=== PATIENT | female | born 1985 | race Caucasian/White ===

== ENCOUNTER 2021-09-18 07:50 | Outpatient (CLI) | payer OTHER, SELFPAY ==
[2021-09-19 21:11] LABS: Rapid Plasma Reagin (RPR) Non Reactive (Non Reactive)
== END 2021-09-18 07:51 | disposition home or self-care (01) ==
PROVIDERS: Physician Assistant; Visit Provider Registered Nurse
DX: Z34.93 Encounter for supervision of normal pregnancy, unspecified, third trimester (principal); Z3A.28 28 weeks gestation of pregnancy
CPT/HCPCS: 86592

== ENCOUNTER 2021-09-18 11:55 | Outpatient (CLI) | payer OTHER, SELFPAY ==
--- NOTE | 2021-09-18 12:15 | CRLHL7_ITS ---
For Patients: As a result of the Century Cures Act, medical imaging exams and procedure reports are released immediately into your electronic medical record. You may view this report before your referring provider. If you have questions, please contact your health care provider. INDICATION: Third trimester scan, evaluate growth. Small for dates. COMPARISON: 07/23/2021 TECHNIQUE: Real time mcgowan scale imaging of the fetus was performed. FINDINGS: Sonographic imaging demonstrates a single living intrauterine gestation. Fetus demonstrates a regular cardiac rate of 161 beats per minute. Fetus has a judy breech position. The placenta lies posterior. Amniotic fluid volume appears normal and there is a single deepest vertical pocket: 4.4 cm. The estimated weight is 1184gm which lies at the 38th %. On the prior OB ultrasound exam dated 07/23/2021 the estimated weight was at the 63rd%. BPD 10th percentile. HC 27th percentile. AC 40th percentile. FL 44th percentile. The HC/AC ratio measures 1.10 range (1.02-1.21). IMPRESSION: Sonographic gestational age 28 weeks 0 days and sonographic due date 12/11/2021. Good correlation with dates. Normal interval growth. Estimated weight 38th percentile. Abdominal circumference 40th percentile. Dictated by Dejon Robles MD @ 09/19/2021 10:52:08 AM (Electronically Signed)
--- OUTSIDE RECORDS SUMMARY | 2021-10-14 12:24 | XMS_ITS | Continuity of Care Document ---
:1985 Author Organization [facility] Address [address] [address] [place] [address] Phone Care Team Providers Name Role Phone Unavailable Unavailable Unavailable Allergies, Adverse Reactions, Alerts Substance Reaction Status Criticality No Known Allergies Active No Informatio n Medications Medication Instructions Dosage Effective Dates Status Comment s (start - stop) Wellbutrin XL 150 take 1 tablet by 150 MG - Active mg 24 hr tablet, oral route every day extended release Herbal - Active norplant bi rth Medications/Supple contro l in the ments unknown arm for 3 y ears Procedures Procedure Date Offic/outpt E&m New Mod Ramon Advance Directives Directive Yes / No Effective Date File Name No Information Encounters Encounter Practice Location Reason(s) Diagnoses Date Provider Provide rs Description For Visit Copied on Encounter Offic/outpt [facility] Symptoms Appendicitis No Ref erring E&m New [facility] Clinic or Concerns with abscess Informati on Provider: Ramon DOYLE, (chief [address]) Self. [address], [place], [place], [id number], [place] tel:[phone] Family History Family Member Type Diagnosis Age At Onset Mother Problem (finding) Alive and well Brother Problem (finding) Alive and well Father Problem (finding) hypertension Payers Payer name Insurance type Covered democrat ID Authorization(s ) [facility] [id number] Social History Type Description Quantity Date Captured Comments Alcohol Use Details Caffeine Use Details Unknown Tobacco Use Status Never smoked tobacco Smoking Status Never smoker Non-Smoking Tobacco : No Details Available : No Details Available J Use Details Sex Female Vital Signs Date / Height Weight BMI Pulse Blood Temperature Respiratory Body Head Head Circ. Wt./German. BMI Pulse Inhaled Time: Rate Pressure Rate Surface Circumference Percenti le Percentile percentile Ox Ox Area 61.00 51.710 21.5 67 118/76 -2018 in kg 4 /min mm[Hg] 10:54 (114.00 kg/m AM lbs) aishwarya (2) Chief Complaint And Reason For Visit From encounter dated 09/20/2017 11:00'. GI Symptoms or Concerns (chief complaint). Description: This patient is a 31-year-old female from [place], [place], who is seen today for further opinion regarding recent illness, which began on oraround September 05, 2017, with acute onset of severe right lower quadrant abdominal pain. The patient wasaccompanied today by her father who provided some of the history, also. Additional information was obtained from review of outside records, which had been previously procured. 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 She has performed her services wor wide for the last 2 years. The patient was awakened from a sound sleep on September 05, 2017, with severe right lower quadrant abdominal pain. The patient was seen on that date at a [facility] [place]. I understand that laboratory testing showed a white blood count of approximately 13,000 and had subsequently an elevation of the C-reactive protein was noted. According to the patient, she was told on that date that, if desired, she could go to the emergency room for further evaluation or she could observe her symptoms carefully and seek further investigation if they persisted. The patient was seen by her primary care provider on September 10, 2017. A CT scan of the abdomen/pelvis on that date showed wall thickening of the terminal ileum. There is a markedly distended appendix measuring up to 18 mm in diameter with a thick enhancing wall. There is surrounding inflammatorychange. There is focal enlargement or fluid collection within the distal appendix measuring 2.6 x 1.7 cm suspicious for abscess. There is wall thickening of the distal cecum. A small amount of free fluid was noted in the pelvis, but there was no evidence of any free air. According to the report, the radiologist felt the changes were consistent with acute appendicitis and were "suspicious for abscess. The patient was started on antibiotic therapy and she told me today that she has just finished the course of antibiotics. She was seen by the surgical lead in [place] on September 14, 2017, and was advised to continue antibiotic therapy. Longer term plans were to repeat the CT scan in 4 to 6 weeks and to go ahead with appendectomy, if inflammatory changes have resolved. 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 Instead my associate Dr. Ford was contacted a few days ago by telephone and he was then arranged for the patient to be seen in our clinic today.The patient told me that initially her abdominal pain seemed to subside greatly after the first couple of days, but then it again became more severe. As she finishes the antibiotics as of today, she continuous to have some relatively mild right lower quadrant discomfort and tenderness. The discomfort is worse, if she walks or lifts something, but it has not awakened her from sleep. The patient had previously been having a low grade fever, but she noted that she has been afebrile for the last 3 days. She has not had any chills. The patient has had no nausea, vomiting, hematemesis, reflux symptoms or dysphagia. Her appetite has been good and she haslost a few pounds in weight.Normally, the patient has 1 formed stool daily. Currently, she is having2 movements per day with the initial stool being somewhat soft and normally formed and in the secondstool somewhat looser in consistency. However, the patient has had no blood in the stool nor any melena. The patient denies any other prior history of gastrointestinal problems. Her family history is said to be negative for colon cancer, inflammatory bowel disease, or any other major gastrointestinal disorders.The patient has otherwise been very healthy. She does have a history of anxiety. She does not smoke or abuse alcohol. There are no known medication allergies. Regular medications include herbal supplement and Wellbutrin. Reason For Referral Reason For Referral No Information Plan Of Treatment Date Type Action Status No Information History Of Present Illness Encounter Date Complaint History Of Present I llness GI Symptoms or Concerns This patient is a 31-year-old female from [place], [place] , who is seen today for further opinion regstacey joaquining recent illness, which began on or ar ound September 05, 2017, with acute onset of sever e right lower quadrant abdominal pain. The patient was accompanied today by her father who provided some of the history, also. Addit ional information was obtained from review of outside records, which had been previously procured. 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 The patient was awakened from a sound sleep on September 05 8, with severe right lower quadrant abdominal p ain. The patient was seen on Functional Status Date Functional Assessment No Information Instructions Date Instruction Additional Informati on I did discuss options available with Rel ated to Appendicitis with abscess the patient and her father. These, however, all involve a surgical followup. First, I did tell the patient I would be happy to arrange referral to a surgeon in this area for second opinion. However, it would be somewhat uncertain as to how soon that appointment could be arranged. The issue of the patient going to a local emergency room for evaluation of ongoing symptoms was also discussed. In that situation, I advised the patient and her father that surgical opinion could be requested. The final option and the one which the patient elected was to return to [place] and follow up with her surgeon, Dr. Stark. She indicated that she was most comfortable with this approach. The patient was advised that if she has any further questions or concerns or if we can be of additional assistance, she should not hesitate to contact us. The patient and her father thanked me for the detailed discussion today and indicated that their questions have been addressed satisfactorily. Assessments Type Assessment Date assessment Appendicitis with abscess impression The patient presents to the clinic today for further opinion regarding an acute illness which began w ith severe acute right lower quadrant pain on September 05, 2017. Mil d leukocytosis was noted. Few days later specifically on 2017, the patient had a CT scan of the abdomen/pel vis, which was interpreted to show changes consistent w ith acute appendicitis and possible/probable appendiceal absces s. The patient has recently finished a course of antibiotic therapy and continues to have some mild right lower quadrant d iscomfort. On exam today, she did have some right lower hanna drant tenderness without any peritoneal findings or palpa ble mass. As discussed with the patient and her father who was present, overall it appears that the patient's symptoms can be explained on the basis of appendicitis and appendiceal ab scess. The inflammatory changes involving the termi nal ileum and a portion of the cecum as described on the CT scan are probably reactive in nature. I am aware that co ncern has been raised that the patient could have inflammatory bowel disease i.e. specifically Crohn's. However, as we dis cussed today, the presentation here is certainly not sugge stive of Crohn's disease. Under the circumstances, we wou ld strongly advise against colonoscopy. I did discuss the s ituation with several of my colleagues and all were in agreeme nt with this assessment. Mental Status Date Cognitive Assessment Orientation - Oriented to ti me, place, person, situation. Patient Care Teams Name Effective Dates (start - stop) Status M embers No Information
== END 2021-09-18 11:56 | disposition home or self-care (01) ==
PROVIDERS: Visit Provider Physician Assistant
DX: O36.5930 Maternal care for other known or suspected poor fetal growth, third trimester, not applicable or unspecified (principal); Z3A.28 28 weeks gestation of pregnancy
CPT/HCPCS: 76816

== ENCOUNTER 2021-11-13 14:43 | Outpatient (CLI) | payer SELFPAY ==
--- OUTSIDE RECORDS SUMMARY | 2021-11-13 14:44 | XMS_ITS | Clinical Summary ---
:1985 Author Organization [facility] [place] [address] Care Team Providers Name Role Phone Clinic, [email or web address] Primary Care Provider [phone] Allergies No known active allergies Medications Medication Sig Dispensed Refills Start Date End Date Status azithromycin Take 500 mg (2 6 Tablet 0 03/10/2021 A ctive (ZITHROMAX) 250 mg tabs) by mouth on tabletIndications: day 1, then 250 Bronchitis mg (1 tab) daily for days 2-5. buPROPion (WELLBUTRIN TAKE ONE TABLET 90 Tablet 0 09/23/2021 Active XL) 150 mg BY MOUTH EVERY Extended-Release DAY tabletIndications: Anxiety Active Problems Problem Noted Date Anxiety 07/11/2020 Sleep disorder 07/11/2020 Acute phlegmonous appendicitis 10/19/2017 Resolved Problems Problem Noted Date Resolved Date Abdominal pain 09/14/2017 03/10/2021 Encounters Date Type Specialty Care Team Description 09/21/2021 Refill Octavio Sherwood MD Refill R equest (Bupropion) from Last 3 Months Immunizations Name Administration Dates Next Due COVID-19 vaccine (FirstString 04/18/2020, 03/28/2020 30mcg/0.3mL) FINESSE SCHNEIDER DT (Age < 7 years) 06/08/1991 DTP 02/19/1988, 04/03/1987, 07/24/1986, 02/14/1986 HIB PRP-D (ProHIBIT) 09/27/1987 Hepatitis B (Peds) 09/23/2004, 10/04/2002, 01/24/2001 Human Papilloma Virus Vaccine 11/12/2009, 08/16/2009, 2009 Influenza, IIV4 03/12/2017 MMR 07/29/1998, 09/27/1987 Meningococcal Vaccine (Menactra) 09/23/2004 Oral Polio Vaccine 06/08/1991, 02/19/1988, 07/24/1986, 02/14/1986 Td (Age >=7 Years) 07/29/1998 Tdap 03/15/2018 Tuberculin (PPD) 03/15/2017 Family History Medical History Relation Name Comments Alcoholism Father Anxiety disorder Mother Depression Mother Relation Name Status Comments Father Alive Mother Alive Social History Tobacco Use Types Packs/Day Years Used Date Never Smoker Smokeless Tobacco: Never Used Tobacco Cessation: Counseling Given: Yes Alcohol Use Standard Drinks/Week Comments Yes 8 (1 standard drink = 0.6 oz pure alcoho l) Alcohol Habits Answer Date Recorded How often do you have a drink containing alcohol? 2-3 times a week 11/21/2018 How many drinks containing alcohol do you have on a 3 or 4 11/21/2018 typical day when you are drinking? How often do you have six or more drinks on one Monthly 11/21/2018 occasion? Comment: Not asked Sex Assigned at Date Recorded Not on file Obstetrics History Para Term AB IAB SAB Ectopic Multiple Living Live Births 0 0 0 0 0 0 0 0 0 0 0 Last Filed Vital Signs Vital Sign Reading Time Taken Comments Blood Pressure 102/70 03/10/2021 9:04 AM SPRING INTERN Pulse 72 03/10/2021 9:04 AM SPRING INTERN Temperature 36.5 ??C (97.7 ??F) 03/10/2021 9:04 AM SPRING INTERN Respiratory Rate 16 08/28/2019 12:07 PM CDT Oxygen Saturation 98% 03/10/2021 9:04 AM SPRING INTERN room ai r Inhaled Oxygen Concentration - - Weight 57.1 kg (125 lb 12.8 oz) 03/10/2021 9:04 AM SPRING INTERN Height 156.2 cm (5' 1.5) 03/10/2021 9:04 AM SPRING INTERN Body Mass Index 23.38 03/10/2021 9:04 AM SPRING INTERN Plan of Treatment Health Maintenance Due Date Last Done Comments Hepatitis C screening for age 0709/30/2003 18-79 COVID-19 vaccine series (3 - 09/15/2020 04/18/2020, 021 Booster for Pfizer series) Influenza for age 9-49 11/06/2021 03/12/2017 Depression screening for age 12+ 02/13/2022 02/13/2021, 08/2020, 01/19/2020, Additional history exists Pap test for age 21-65 03/09/2022 03/09/2019, 12/06/2003 BMI (ht and wt on same day) for 03/10/2022 03/10/2021, 08/07, age 18+ 03/09/2019, Additional history exists Tetanus booster 03/15/2028 03/15/2018, 07/29/1998 Tdap Completed 03/15/2018 Results Not on filefrom Last 3 Months Insurance Payer Benefit Plan / Subscriber ID Effective Dates Phone Addre ss Type Group BLUE CROSS BLUE CROSS OF [id number] 2019-Present [address] [place] [address] Care Teams Joinery Setter Out Relationship Specialty Start Date End Date Clinic, [facility] Julio PCP - General 10/17/20 100 [facility] [place] [address]
[2021-11-14 14:52] LABS: Strep B DNA Probe NEGATIVE (Negative)
== END 2021-11-13 14:44 | disposition home or self-care (01) ==
LOC: NFLDREF 14:43
PROVIDERS: Visit Provider Advanced Practice Midwife
DX: Z34.93 Encounter for supervision of normal pregnancy, unspecified, third trimester (principal); Z3A.36 36 weeks gestation of pregnancy
CPT/HCPCS: 87081; 87653

== ENCOUNTER 2021-11-25 08:34 | Outpatient (CLI) | payer OTHER, SELFPAY ==
--- OUTSIDE RECORDS SUMMARY | 2021-11-25 08:37 | XMS_ITS | Clinical Summary ---
:1985 Author Organization [facility] [place] [address] Care Team Providers Name Role Phone Clinic, [facility] Primary Care Provider [phone] Allergies No known active allergies Medications Medication [...] Name Administration Dates Next Due COVID-19 vaccine (S[employer]urf 04/18/2020, 03/28/2020 30mcg/0.3mL) FINESSE SCHNEIDER DT (Age [...] Comments Blood Pressure 102/70 03/10/2021 9:04 AM AIRLINE STEWARDESS Pulse 72 03/10/2021 9:04 AM AIRLINE STEWARDESS Temperature 36.5 ??C (97.7 ??F) 03/10/2021 9:04 AM AIRLINE STEWARDESS Respiratory Rate 16 08/28/2019 12:07 PM CDT Oxygen Saturation 98% 03/10/2021 9:04 AM AIRLINE STEWARDESS room ai r Inhaled Oxygen Concentration - - Weight 57.1 kg (125 lb 12.8 oz) 03/10/2021 9:04 AM AIRLINE STEWARDESS Height 156.2 cm (5' 1.5) 03/10/2021 9:04 AM AIRLINE STEWARDESS Body Mass Index 23.38 03/10/2021 9:04 AM AIRLINE STEWARDESS Plan of Treatment Health Maintenance Due Date [...] Type Group BLUE CROSS BLUE CROSS OF [id number] 2019-Present [address] [place] [address] Care Teams Casting Room Helper Relationship Specialty Start Date End Date Clinic, [facility] Julio PCP - General 10/17/20 100 [facility] [place] [address]
[2021-11-25 08:53] VITALS: BP 115/69; PULSE 67
[2021-11-25 08:56] VITALS: RESP 18; TEMP 36.9
--- NOTE | 2021-11-25 09:45 | PM.OBLDTN ---
OB - Triage/Final Diagnosis Visit Information Time Seen by Provider: 09:30 Date Seen: 11/25/21 Date of evaluation: 11/25/21 Narrative: Letty is a 36 year old 3 para 0 at 37 6/7 weeks gestation, who presents with c/o decreased movement. Pt is currently medicated for anxiety, and has history of 2 miscarriages, and family history of third trimester demise - all of which contribute to her feeling a little anxious about her current . Reassured her that NST is reactive and she can call or come in at any time for NST if she is concerned about decreased or change in activity. Pt presents from: Home GA: 37 6/7 C/o: Decreased Movement Ctx: Denies ROM: Denies Bleeding: Denies Discharge: Denies Current : Blood type: O+ GBS: Negative Vital Signs FHTs: Cat 1 Baseline: 135 Variability: Moderate Accels: Present Decels: none Ctx: irregular Reactive NST - Yes Assessment: 36yo @ 37 6/7 Weeks IUP. GBS negative Decreased Movement - NST Reactive Complications: none Plan: Discharge home Encouraged pt to call with any concerns or decrease in activity. Offered weekly NSTs if that would help ease her anxiety, pt considering and will discuss at appointment on 11/28/21 Reason for evaluation: decreased movement Evaluation Vital signs: Vital Signs - 24 hr 11/25/21 08:56 11/25/21 08:53 Temperature 98.4 F Pulse Rate 67 Respiratory Rate 18 Blood Pressure 115/69 Fetus (Single) Heart Rate Baseline: 135 Intermediate Variability: Moderate (11-25) (6-25) Monitor Accelerations: Present Monitor Decelerations: None Final Diagnosis (1) Encounter for supervision of other normal , third trimester: Status: Acute (2) Decreased movement affecting management of mother, antepartum: Status: Acute (3) Anxiety: Status: Acute
--- NOTE | 2021-11-25 10:17 | PC.OBNST ---
NST Note NST Note Start: 11/25/21 08:13 Freq: ONCE Status: Discharge Protocol: Document 11/25/21 09:59 AM (Rec: 11/25/21 10:02 AM [id number]) NST Note 3 Para (# of births) 0 EDC 12/10/21 Gestational Age In Weeks & Days 37 Weeks & 6 Days Patient Presented with Complaint(s) of Decreased movement Reactive Yes Appropriate for Gestational Age Yes RN KAMILAH RNC Date 11/25/21 Reactive Yes Appropriate for Gestational Age Yes FIORDALIZA SCHNEIDER RN Date 11/25/21 OB NST charge Yes Complete NST Note via Write Note Yes The provider's electronic signature indicates the NST is reactive/appropriate for gestational age. *Note to provider: If an addendum is required, open the patient's chart and click on the note under the Nurse/Allied Health tab.
== END 2021-11-25 09:47 | disposition home or self-care (01) ==
LOC: OB OUT 08:35 → OB 08:37
PROVIDERS: Visit Provider Advanced Practice Midwife
DX: O36.8130 Decreased fetal movements, third trimester, not applicable or unspecified (principal); Z3A.37 37 weeks gestation of pregnancy
CPT/HCPCS: 59025; 99213

== ENCOUNTER 2021-12-06 16:30 | Inpatient (IN) | payer OTHER, SELFPAY ==
[2021-12-06] VITALS (11 sets, daily range): BP systolic 117–137; BP diastolic 75–84; PULSE 64–78; RESP 14–20; TEMP 36.7–37.2; O2SAT 98; BMI 25.9
--- OUTSIDE RECORDS SUMMARY | 2021-12-06 15:38 | XMS_ITS | Continuity of Care Document ---
:1985 Author Organization [facility] Address [address] [address] [place] [address] Phone Care Team Providers Name Role Phone [...] For Visit Copied on Encounter Offic/outpt [facility] Symptoms Appendicitis No Ref erring E&m New Mod Digestive Clinic or Concerns with abscess Informati on Provider: Ramon DOYLE, (chief 8 Referral [address]) Self. 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 She has performed her services wor wide for the last 2 years. The patient was awakened from a sound sleep on September 05, 2017, with severe right lower quadrant abdominal pain. The patient was seen on that date at a [facility] [place]. I understand that laboratory testing showed a [...] antibiotics. She was seen by the surgical scrub tech in [place] on September 14, 2017, and was advised to continue antibiotic therapy. Longer term plans were to repeat the CT scan in 4 to 6 weeks and to go ahead with appendectomy, if inflammatory changes have resolved. 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 She has performed [...] the patient elected was to return to [place] and follow up with her surgeon, Dr. [...]
--- OUTSIDE RECORDS SUMMARY | 2021-12-06 15:38 | XMS_ITS | Clinical Summary ---
:1985 Author Organization [employer] [facility] [place] [address] Care Team Providers Name Role Phone [facility] Primary Care Provider [phone] Allergies No known active allergies Medications Medication [...] Name Administration Dates Next Due COVID-19 vaccine ([employer] 04/18/2020, 03/28/2020 30mcg/0.3mL) FINESSE SCHNEIDER DT (Age [...] Comments Blood Pressure 102/70 03/10/2021 9:04 AM SPOT WELDER BODY ASSEMBLY Pulse 72 03/10/2021 9:04 AM SPOT WELDER BODY ASSEMBLY Temperature 36.5 ??C (97.7 ??F) 03/10/2021 9:04 AM SPOT WELDER BODY ASSEMBLY Respiratory Rate 16 08/28/2019 12:07 PM CDT Oxygen Saturation 98% 03/10/2021 9:04 AM SPOT WELDER BODY ASSEMBLY room ai r Inhaled Oxygen Concentration - - Weight 57.1 kg (125 lb 12.8 oz) 03/10/2021 9:04 AM SPOT WELDER BODY ASSEMBLY Height 156.2 cm (5' 1.5) 03/10/2021 9:04 AM SPOT WELDER BODY ASSEMBLY Body Mass Index 23.38 03/10/2021 9:04 AM SPOT WELDER BODY ASSEMBLY Plan of Treatment Health Maintenance Due Date [...] Type Group BLUE CROSS BLUE CROSS OF [id number] 2019-Present [address] [place] [address] Care Teams Top And Seat Cover Fitter Relationship Specialty Start Date End Date Clinic, [facility] Julio PCP - General 10/17/20 100 [facility] [place] [address]
[2021-12-06 16:11] LABS: Amnisure Rom* POSITIVE
[2021-12-06 17:29] LABS: SARS PCR* Negative SARS-CoV-2 (Negative)
[2021-12-06 17:40] LABS: Basophils Percent Auto 0.3 % (0.0-3.0); Eosinophils Percent Auto 0.3 % (0.0-7.0); Hematocrit 37.9 % (33.0-51.0); Hemoglobin* 12.7 gm/dL (12.0-16.0); Immature Granulocytes Abs Auto 0.02 K/uL (0.00-0.30); Lymphocytes Percent Auto 26.3 % (20-44); Mean Corpuscular HGB Conc 34 gm/dL (32-36); Mean Corpuscular Hemoglobin 29 pg (26-34); Mean Corpuscular Volume 88 fL (80-100); Monocytes Percent Auto 6.4 % (0.0-11.0); Neutrophils Percent Auto 66.5 % (42.0-72.0); Platelet Count* 292 K/uL (140-440); RDW Coefficient of Variation % 12.5 % (11.5-15.5); Red Blood Count 4.32 m/uL (4.00-5.20); White Blood Count* 11.49 K/uL (4.50-11.00)
[2021-12-06 17:42] LABS: Slide Review Reflex No
--- NOTE | 2021-12-06 18:42 | W.PM.LDBA ---
Subjective History of Present Illness Date Seen: 12/06/21 Narrative: Patient is being admitted to Labor and Delivery for SROM at 1315. She is a 36 year old at 39.3 weeks gestation. Her full history and physical was dictated by Andre Davidson CNM on 11/20/2021. Please see this for details. SROM at home around 1315 with clear fluid. some contractions since then but noting painful. Ana about every 3-5 min. Able to talk through contractions. She would like expectant management at this time. Will reevaluate if not in active labor by 12 hours post rupture. Desires a water . 1. AMA ?? ? Rec. level 2 u/s at 19-20 weeks: Completed 07/23 w/ Dr. Santillan MaterniT 21:? Negative 06/02/2021 2. ABIMAEL 2.0 x 0.4 x 1.3 cm 3. Recommended Aspirin 81mg d/t nullip and AMA 4. Measuring small for dates and poor maternal weight gain Growth ultrasound 09/18/2021:? EFW 38%. Guillermo breech Offered growth 11/28, declines at this time OB - H&P: Exam Physical Exam: Vital signs: Temp Pulse Resp BP Pulse Ox 98.7 F 71 16 120/83 98 12/06/21 18:36 12/06/21 16:31 12/06/21 18:36 12/06/21 16:31 12/06/21 15:59 Constitutional: Constitutional: no acute distress Routine HEENT Exam: Head: Present normal inspection Routine Neck Exam: Neck: Present full ROM Detailed Neck Exam: Thyroids: Thyroid: Present normal Routine Respiratory Exam: Respiratory: Present CTA bilaterally Routine Cardiovascular Exam: Cardiovascular: RRR Routine Exam: Patient deferred: external exam Detailed Labor and Delivery Exam: Patient Gravid: yes Tachysystole: No Contraction intensity: Mild Comments: RN unable to determine dilation on SVE. Offered SVE but declined. Would not change plan of care at this time. 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 at 39.3 weeks gestation? GBS negative Uncomplicated ? ?? PLAN:? 1. Desires water . Consent signed. Hep C negative.? 2. Candidate for analgesia of choice. Planning unmedicated .? 3. Anticipate ? 4. Expectant management at this time.? 5. No IV needed at this time. 6. Intermittent monitoring per policy Delivery/Labor/Induction Plan Plan: expectant management
[2021-12-07] VITALS (23 sets, daily range): BP systolic 101–137; BP diastolic 57–91; PULSE 55–81; RESP 16–20; TEMP 36.6–36.9
--- NOTE | 2021-12-07 07:29 | PM.OBPNL ---
Pain Control Date Seen: 12/07/21 Pain control: tolerating well (breathing through contractions) Contractions Monitor mode: External Contraction frequency: 3 (Q 3-5 min) Contraction pattern: Regular Contraction intensity: Moderate Pelvic Exam Dilation (cm): 1 Effacement (%): 70 Station: -2 Comments: Disappointed with cervical change. She is very tired. Encouraged continued position changes. Encouraged Buccal cytotec. Risks and benefits discussed. Agreeable to this plan. She can also consider morphine and Vistaril to be able to sleep/rest. Fetus (Single) Amniotic Membrane Status: SROM status: Category l Comments: Baseline 120, + accels, - decels, moderate variability. Assessment and Plan Assessment: other (SROM, early labor without cervial change) Plan: other (cytotec augmentation)
[2021-12-07] MEDS: miSOPROStoL 25 MCG/0.25 TABLET PO ×4 (07:39→22:02)
[2021-12-07] MEDS: hydrOXYzine pamoate 25 MG CAPSULE 100 MG PO ×2 (07:46→20:34)
[2021-12-07] MEDS: MORPHINE 10 MG/ML inj IM (07:46)
--- NOTE | 2021-12-07 20:07 | PM.OBPNL ---
Pain Control Date Seen: 12/07/21 Pain control: tolerating well Comments: Patient is feeling like my voice is not connected to my body. Denies other concerns or symptoms at this time. RRR and HR normal. She feels that it my be related to either lack of sleep of the morphine she received earlier today. She has had this feeling for about 1 hour and it has not changed of got worse. She is comfortable to wait to see how if it changes or progresses. We had a long conversation about options for continuing her augmentation of labor after SROM. Options presented include AROM of the forebag, continue with cytotec, switching to pitocin, or expectant management. She is feeling current contractions as low abdomen cramping. Baby is tolerating labor well and she is not febrile. After a lot of discussion she choose to AROM the forebag. She wants to wait on the next dose of cytotec. If no increase in contraction frequency or intensity in the next 2 hours she will receive the next dose of cytotec. She plans to get Vistaril for sleep and knows that she can add morphine if she is not able to sleep. Contractions Monitor mode: External Contraction frequency: 5 (Q 5-8 min) Contraction pattern: Irregular Contraction intensity: Moderate Pelvic Exam Dilation (cm): 1 Effacement (%): 80 Station: -2 Fetus (Single) Amniotic Membrane Status: AROM (AROM of forebag by CNM with clear fluid) status: Category l Assessment and Plan Assessment: induction ongoing Plan: other (AROM of forebag and continue with cytotec)
[2021-12-08] VITALS (86 sets, daily range): BP systolic 88–153; BP diastolic 0–92; PULSE 55–158; RESP 14–18; TEMP 36.6–37.6; O2SAT 96–100
[2021-12-08] MEDS: miSOPROStoL 25 MCG/0.25 TABLET PO (02:01)
[2021-12-08] MEDS: ONDANSETRON 2 MG/ML inj 4 MG IV (06:00)
[2021-12-08] MEDS: LACTATED RINGERS 1000 ML 1,000 ML 1200 ML IV ×2 (08:29→09:35)
--- NOTE | 2021-12-08 08:51 | PM.OBPNL ---
Pain Control Time Seen by Provider: 08:00 Date Seen: 12/08/21 Pain control: nitrous oxide (out but not currently using. Partner and family at bedside for support, using touch. Breathing through them.) Comments: Letty is uncomfortable and exhausted. Reviewed options of nitrous in bed or the tub so she can rest, fentanyl, or epidural. She would like to proceed with an epidural. There has been little change since the previous exam, and options reviewed r/t that. Decision made to start pitocin r/t length of SROM. Contractions Monitor mode: External Contraction frequency: 3 (Q 2-3 min) Contraction pattern: Regular Contraction intensity: Moderate Pelvic Exam Dilation (cm): 2 Effacement (%): 80 Station: -3 Comments: Firm, posterior, slight BBOW Fetus (Single) Amniotic Membrane Status: SROM (followed by AROM of of forbag previously) status: Category l Comments: Per doppler previously. Just placed on EFM. FHTs 135, mod variability, accels present, no decels. Assessment and Plan Assessment: prodromal labor (Prolonged rupture of membranes) Plan: begin Pitocin augmentation Comments: Assessment: at 39.5 weeks GBS neg Prolonged ruptured of membranes, clear fluid. No cervical change from previous exam. Plan: Epidural per pt request Options reviewed. Decision made to start pitocin. Will continue to monitor FHTs Continue to monitor for signs of chorio.
[2021-12-08] MEDS: LIDOCAINE 2% (PF) 5 ML VIAL EPIDURAL (09:15)
[2021-12-08] MEDS: ROPIVACAINE 0.2% 100 ml 100 ML 10 MG EPIDURAL (09:16)
--- NOTE | 2021-12-08 09:18 | P.ANBPRC_ITS ---
PFSH PFSH Social History Smoking Status: Never smoker Meds Home Medications and Allergies Home Medications Medication Instructions Recorded Confirmed Type aspirin 81 mg tablet,delayed 81 mg PO DAILY 09/18/21 12/06/21 History release bupropion HCl 150 mg 24 hr tablet, 150 mg PO DAILY 09/18/21 12/06/21 History extended release docosahexaenoic acid 200 mg 200 mg PO DAILY 09/18/21 12/06/21 History capsule ( DHA) Allergies Allergy/AdvReac Type Severity Reaction Status Date / Time No Known Allergies Allergy Unverified 12/04/21 14:31 Results Vital Signs Vital Signs: Last Vital Signs Temp 98.6 F 12/08/21 06:45 Pulse 68 12/08/21 09:17 Resp 18 12/08/21 07:34 BP 123/81 12/08/21 09:17 Pulse Ox 99 12/08/21 09:18 Weight: 62.414 kg Height: 154.94 cm Anesthesia Procedures Epidural Insertion Patient Location: OB Start Time: 09:00 Stop Time: 09:30 Start Date: 12/08/21 Stop Date: 12/08/21 Reason for Block: primary anesthetic Patient Position: sitting Performed By: Jimmy Jimenez Preanesthetic Checklist: IV checked, risks and benefits discussed, surgical consent, monitors and equipment checked, pre-op evaluation, timeout performed and anesthesia consent Prep: chlorhexidine gluconate Monitoring: blood pressure monitoring, 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
[2021-12-08] MEDS: OXYTOCIN 30 unit/500 ML in NS 30 UNIT/500 ML BAG IVPB (10:16)
[2021-12-08] MEDS: LACTATED RINGERS 1000 ML 1,000 ML 125 ML IV ×3 (10:26→20:20)
[2021-12-08] MEDS: PHENYLEPHRINE 100 MCG/ML SYRINGE IVP ×2 (11:13→12:56)
[2021-12-08] MEDS: OXYTOCIN 30 unit/500 ML in NS 30 UNIT/500 ML BAG 7 UNIT IVPB (13:10)
--- NOTE | 2021-12-08 14:21 | PM.OBPNL ---
Pain Control Time Seen by Provider: 13:45 Date Seen: 12/08/21 Pain control: epidural Comments: Pt much more comfortable with epidural in place. Has has a few doses of medication to counteract low BP r/t epidural. Recently repositioned by RN. Partner and mom remain at bedside for support. Pt states she is starting to feel chilled, feels warm to the touch per CNM. Reviewed concerns - regarding increased risk for chorio r/t chills, warm to touch, and FHR starting to become elevated. Afebrile at this time. Also concerns about intolerance for labor. Late decels noted, even with position change. Remote from delivery. Consulted Dr. Arthur, recommends . Letty and partner agree with this plan. Questions answered. Contractions Monitor mode: External Contraction frequency: 3 (Q 2-5 min) Contraction pattern: Regular Contraction intensity: Moderate Fetus (Single) Amniotic Membrane Status: SROM (followed by AROM of of forbag previously) Comments: FHTs 160, minimal variability, no accels. Late decels noted. Assessment and Plan Pitocin rate (mU/min): 7 (7 mu, dc'd w/ decision to proceed with ) Plan: Comments: Assessment: at 39.5 weeks GBS neg Prolonged rupture of membranes Late decelerations, remote from delivery. Decision made to proceed with . Dr. Arthur at bedside to consent pt. Pitocin Dc'd.
--- NOTE | 2021-12-08 17:37 | PM.OBPRCCS ---
Procedure Pre-op/Post-op diagnoses: Pre-Op/Post-Op Diagnoses Operation Date: 12/08/21 15:00 <No data on this case meets the specified criteria> Procedure Done: Global Procedure Details: Procedures Operation Date: 12/08/21 15:00 Actual Procedure Side Surgeon p Section Letitia Arthur MD Narrative: PREOPERATIVE DIAGNOSIS: Failed induction of labor Prolonged rupture membranes, greater than 48 hours bradycardia POSTOPERATIVE DIAGNOSIS: Failed induction of labor Prolonged rupture membranes, greater than 48 hours bradycardia PROCEDURE: Primary low-transverse section SURGEON: Karen Franco MD ANESTHESIA: Epidural IV FLUIDS: 800 mL crystalloid QBL: 433 mL FINDINGS: 1. Male , cephalic OP presentation, Apgars of 8 and 9, weight 7 lb 2. Normal appearance to uterus, bilateral tubes and ovaries. COMPLICATIONS: None PROCEDURE IN DETAIL: Patient was taken to the operating room with IV running. She received cefazolin in preoperative prophylaxis. Epidural anesthesia had previously been administered. Bhatia catheter was previously inserted. She was prepped and draped in the usual sterile fashion. Anesthesia was tested and found to be adequate. heart rate was checked after patient was positioned, and was found to be in the 60s. Because of this, the was then delivered expeditiously. A low-transverse skin incision was made with a scalpel and carried through to the underlying layer of fascia with the scalpel. The subcutaneous fat was dissected off the underlying fascia bluntly. The fascia was nicked in the midline with a scalpel, and this incision was extended bluntly. The rectus muscles were in the midline. Peritoneum was identified and entered bluntly. Corona O retractor was inserted and tightened down, providing excellent visualization of the lower uterine segment. The bladder reflection was found to be well below the planned site for hysterotomy. Low-transverse uterine incision was made with a scalpel. Incision was widened bluntly. The 's head was grasped through the hysterotomy and delivered with the help of fundal pressure. The remainder of the body delivered without incident. Cord was clamped and cut after 30 seconds. Infant was handed off to attending pediatricians. The placenta was delivered with gentle traction on the cord. The uterus was cleaned of all clots and debris with the dry lap pad. The hysterotomy was reapproximated with 0 Vicryl in a running, locked fashion. Second layer of the same suture was used in imbricating fashion to obtain hemostasis. The bladder reflection was found to be advanced slightly along the right lower uterine segment. To determine that the bladder was not enclosed in the right aspect of the hysterotomy, a small incision was made sharply in the vesicouterine peritoneum below the right aspect of the hysterotomy. The bladder was found to be out of harm's way. This small incision was then closed with a running stitch of 2-0 Vicryl. The adnexa were examined and noted to be normal in appearance. The cul-de-sac and gutters were cleansed with dampened laparotomy sponge, removing any further clots and debris. The Corona O retractor was removed. The hysterotomy was reexamined and found to be hemostatic. The peritoneum was reapproximated with 2 0 Vicryl in a running fashion. The rectus muscles were examined and found to be hemostatic. The fascia was reapproximated with 0 Vicryl in a running fashion. Subcutaneous fat was irrigated and Bovie used on oozing vessels. The skin was closed with a subcuticular stitch of 4-0 Vicryl. Surgical glue was applied above this. Patient tolerated procedure well was taken to recovery area in stable condition.
--- NOTE | 2021-12-08 20:44 | W.ANESCHARGE ---
Anesthesia Charges Start Date/Time Anesthesia Start Date: 12/08/21 Anesthesia Start Time: 16:34 Stop Date/Time Anesthesia Stop Date: 12/08/21 Anesthesia Stop Time: 17:55 Summary Emergency: Yes
--- NOTE | 2021-12-08 20:45 | W.PM.NB ---
Nerve Block Nerve Block Time Seen by Provider: 17:40 Date Seen: 12/08/21 Type of block requested by surgeon for post-operative analgesia: TAP Side: bilateral Time out performed: Yes Verification of patient name: Yes Verification of date of : Yes Site marking: site marked Name of person performing procedure: PALLAVI Martinez Continuous monitoring Was continuous monitoring of O2 sat, B/P, monitoring specialist, recorded every 15 minutes?: Yes Procedure Checklist: sterile prep, needles and gloves Ultrasound guided. Images saved: Yes Medications given in 5ml increments after negative aspiration: Marcaine (15 ml/side) %: 0.25 mL: 30 Needle gauge: 20 and Exparel (5 ml/side) mL: 10 Needle gauge: 20 Patient tolerated procedure well: Yes Block Charges Block Charge (with Pro Fee): TAP Bilateral Use of Ultrasound Machine for Block: Yes- US Guidance/pain block
[2021-12-08] MEDS: ACETAMINOPHEN 500 MG TABLET 1000 MG PO (20:48)
[2021-12-09 00:15] VITALS: BP 132/81; PULSE 56; RESP 16; TEMP 36.6; O2SAT 96
[2021-12-09] MEDS: KETOROLAC 30 MG/ML inj IVP ×4 (00:28→18:19)
[2021-12-09] MEDS: SIMETHICONE 80 MG TAB.CHEW PO ×2 (01:10→13:37)
[2021-12-09 03:03] VITALS: BP 120/75; PULSE 54; RESP 16; TEMP 36.5; O2SAT 97
[2021-12-09] MEDS: ACETAMINOPHEN 500 MG TABLET 1000 MG PO ×4 (03:07→20:59)
[2021-12-09 07:13] LABS: Hemoglobin* 11.4 gm/dL (12.0-16.0)
[2021-12-09 08:15] VITALS: BP 129/88; PULSE 58; RESP 16; TEMP 36.6; O2SAT 96
[2021-12-09] MEDS: DOCUSATE SODIUM 100 MG CAPSULE PO (09:24)
[2021-12-09 12:00] VITALS: BP 124/82; PULSE 52; RESP 16; TEMP 36.6; O2SAT 97
--- NOTE | 2021-12-09 12:29 | P.OBPN_ITS ---
OB - PN: A/P Assessment and Plan (1) care and examination immediately after delivery: Status: Acute (2) S/P primary low transverse : Status: Acute (3) Lactating mother: Status: Acute (4) Prolonged rupture of membranes, delivered: Status: Acute Plan day: 1 Plan: routine postop care Comments: Routine care Lactating mother. May see if desired. Continue to monitor for s/sx of infection. Did not meet criteria for Chorioamnionitis but was ruptured greater than 48 hours and mildly symptomatic prior to delivery. No fever recorded. Anticipate discharge tomorrow at the earliest. OB - PN: Subj Subjective Date Seen: 12/09/21 Patient comments: no complaints, pain well controlled, incisional pain, tolerating diet and flatus present status: [place] feeding status: exclusively Narrative: The patient is a 36 year old G 3 P 1021 at 39 5/7 weeks gestation that was admitted to the Center on 12/06/21 for PROM. After >48 hours of rupture, minimal cervical dilation, and heart rate changes the decision was made to proceed with section. She had an uncomplicated delivery. She delivered a viable male . She is breast feeding. She reports it is going well. the patient has done well. She has been up and ambulating. She is voiding independently. She is passing flatus but has not yet had a bowel movement. OB - PN: Obj Exam Physical Exam: Vital signs: Temp Pulse Resp BP Pulse Ox O2 Del Method 97.8 F 58 L 16 129/88 96 12/09/21 08:15 12/09/21 08:15 12/09/21 08:15 12/09/21 08:15 12/09/21 08:15 12/09/21 08:15 Constitutional: Constitutional: no acute distress and cooperative Detailed Neck Exam: Thyroids: Comments: Supple Routine Respiratory Exam: Respiratory: Present CTA bilaterally Routine Cardiovascular Exam: Cardiovascular: Present RRR Routine Abdominal Exam: Abdominal: Present soft Fundus: Present firm (u/u) Routine Exam: Comments: Mild edema present. Routine Extremities Exam: Extremities: Present full ROM and normal inspection Routine Psychiatric Exam: Psychiatric: Present normal affect and cooperative Wound Management: Method: adhesive Examination: Present dressed, clean, dry and intact Comments: Lower abdominal transverse incision. OB - PN: Obj Data Labs Labs: Laboratory Results - last 24 hr 12/09/21 06:55 Hgb 11.4 L
[2021-12-09] MEDS: OXYCODONE 5 MG TABLET PO ×2 (13:35→19:39)
[2021-12-09 17:00] VITALS: BP 124/84; PULSE 54; RESP 16; TEMP 36.6; O2SAT 97
[2021-12-09 21:00] VITALS: BP 131/82; PULSE 62; RESP 16; TEMP 36.6; O2SAT 96
[2021-12-10] MEDS: KETOROLAC 30 MG/ML inj IVP (00:19)
[2021-12-10] MEDS: SIMETHICONE 80 MG TAB.CHEW PO ×2 (00:32→10:45)
[2021-12-10] MEDS: OXYCODONE 5 MG TABLET PO ×4 (00:33→12:55)
[2021-12-10] MEDS: IBUPROFEN 600 MG TABLET PO ×2 (04:08→10:45)
[2021-12-10 04:20] VITALS: PULSE 54; RESP 16; TEMP 36.6; O2SAT 98
[2021-12-10 04:40] VITALS: BP 134/86
[2021-12-10 08:16] VITALS: TEMP 36.6
[2021-12-10] MEDS: ACETAMINOPHEN 500 MG TABLET 1000 MG PO ×2 (08:16→14:18)
[2021-12-10] MEDS: DOCUSATE SODIUM 100 MG CAPSULE PO (08:17)
[2021-12-10 08:18] VITALS: BP 137/89; PULSE 61; RESP 16; TEMP 36.8; O2SAT 100
[2021-12-10 09:15] VITALS: TEMP 36.6
--- NOTE | 2021-12-10 10:47 | PM.OBPNCS1 ---
OB - PN: A/P Assessment and Plan (1) S/P primary low transverse : Status: Acute (2) Lactating mother: Status: Acute (3) Anxiety: Status: Acute (4) Elevated blood pressure reading: Status: Acute Plan Assessment: 36 yo @ 39 5/8w Post- Day 2 Elevated Blood Pressures Lactating Mother Plan: Routine post- care Pre-E labs Monitor blood pressures support as needed Plan day: 2 Plan: routine postop care OB - PN: Subj Subjective Time Seen by Provider: :47 Date Seen: 12/10/21 Interval history: Letty is a 36 year old G 3 P 1021 at 39 5/7 weeks gestation that was admitted to the Center on 12/06/21 for PROM. After >48 hours of rupture, minimal cervical dilation, and heart rate changes the decision was made to proceed with section. She had an uncomplicated delivery. She delivered a viable male . She is breast feeding with no concerns. the patient has done well. Pain is mostly well controlled with medication although she does feel some burning near the right end of incision and gas pains up through her back and shoulders when she moves. Ice packs are helping with the incision pain. Discussed movement, rocking chair and ambulation to help relieve gas pain. She has been up and ambulating to the bathroom. She has voided without concerns and is passing flatus but has not yet had a bowel movement. Lochia is minimal with no clots per pt. Eating and drinking fine. Would like to go home today. We discussed her blood pressures which have been rising since yesterday. Considering waiting another day before discharge to monitor bp's. Pt agreeable to labs and possibly staying one more day. Will reevaluate through out the day today. Patient comments: pain well controlled, incisional pain, tolerating diet and flatus present status: [place] feeding status: exclusively OB - PN: Obj Exam Physical Exam: Vital signs: Temp Pulse Resp BP Pulse Ox O2 Del Method 98.3 F 61 16 137/89 100 12/10/21 08:18 12/10/21 08:18 12/10/21 08:18 12/10/21 08:18 12/10/21 08:18 12/10/21 08:18 Constitutional: Constitutional: no acute distress Routine HEENT Exam: Head: Present normocephalic Eye: Present normal appearance Routine Neck Exam: Neck: Present full ROM Routine Respiratory Exam: Respiratory: Present CTA bilaterally Routine Cardiovascular Exam: Cardiovascular: Present RRR Routine Abdominal Exam: Abdominal: Present normal bowel sounds, soft and tenderness Fundus: Present firm (u/u) Routine Extremities Exam: Extremities: Present full ROM and pedal edema Routine Back/Spine/Pelvis Exam: Back/Spine: Present full ROM Routine Skin Exam: Skin: Present dry and warm; Absent rash Routine Neurological Exam: Neurological: Present alert and oriented X3 Detailed Neurological Exam: Coma Scale: Eye Opening: Spontaneous (4) Verbal Response: Orientated (5) Routine Psychiatric Exam: Psychiatric: Present normal affect, normal thought process, cooperative, good insight and good judgment Wound Management: Method: adhesive Examination: Present clean, dry and intact; Absent bloody drainage or serosanguinous drainage
[2021-12-10 12:27] LABS: Aspartate Amino Transferase* 48 U/L (12-35); Creatinine* 0.6 mg/dL (0.5-1.5); Est. Creatinine Clearance* 97.81; Estimated Glomerular Filt Rate 119 ml/min
[2021-12-10 12:28] LABS: Alanine Aminotransferase* 19 U/L (4-35); Blood Urea Nitrogen* 9 mg/dL (5-24)
[2021-12-10 12:30] LABS: Hematocrit 32.5 % (33.0-51.0); Hemoglobin* 10.7 gm/dL (12.0-16.0); Mean Corpuscular HGB Conc 33 gm/dL (32-36); Mean Corpuscular Hemoglobin 29 pg (26-34); Mean Corpuscular Volume 89 fL (80-100); Platelet Count* 222 K/uL (140-440); Red Blood Count 3.65 m/uL (4.00-5.20); White Blood Count* 11.73 K/uL (4.50-11.00)
[2021-12-10 12:33] LABS: Slide Review Reflex No
--- NOTE | 2021-12-10 13:42 | PM.OBDSCS1 ---
DS: Providers Provider Time Seen by Provider: 13:42 Date Seen: 12/10/21 Date of admission: 12/06/21 16:30 Primary care physician: Not a Local Provider Admitting Clinician: Ginny Davidson CNM Attending Physician on discharge: Victoria Haley CNM Date of Discharge: 12/10/21 Exam Const: Vital Signs, click to edit/add: Vital Signs - 24 hr 12/09/21 17:00 12/09/21 21:00 12/10/21 04:20 Temperature 98 F 97.8 F 97.8 F Pulse Rate [Pulse Oximeter] 54 L 62 54 L Respiratory Rate 16 16 16 Blood Pressure [Le ft Arm] 124/84 131/82 Blood Pressure [Ri ght Arm] Pulse Oximetry 97 96 98 Oxygen Delivery Me thod Room Air Room Air Room Air 12/10/21 04:40 12/10/21 08:16 12/10/21 08:18 Temperature 97.9 F 98.3 F Pulse Rate [Pulse Oximeter] 61 Respiratory Rate 16 Blood Pressure [Le ft Arm] 137/89 Blood Pressure [Ri ght Arm] 134/86 Pulse Oximetry 100 Oxygen Delivery Me thod Room Air 12/10/21 09:15 Temperature 97.8 F Pulse Rate [Pulse Oximeter] Respiratory Rate Blood Pressure [Le ft Arm] Blood Pressure [Ri ght Arm] Pulse Oximetry Oxygen Delivery Me thod Documenting provider has reviewed patient's vital signs: yes Common normals: no apparent distress, average body habitus, oriented x3, healthy appearing, alert and well nourished General appearance: cooperative, comfortable, well kempt and well developed Orientation/consciousness: Yes awake, Yes oriented to person, Yes oriented to place and Yes oriented to time HENMT: Common normals: normocephalic and external nose normal Head and scalp: normocephalic Nose: external nose normal Eye: General eye: normal appearance of both eyes Neck & C-Spine: Common normals: full ROM and supple General: normal visual inspection Cervical spine: cervical ROM normal Chest: Common normals: inspection of chest normal and palpation of chest normal Chest: symmetrical chest wall rise Resp: Common normals: normal respiratory effort, no retractions, no use of accessory muscles and clear to auscultation bilaterally Effort & inspection: able to speak in complete sentences and symmetric chest movement Auscultation: clear to auscultation bilaterally Cardio: Common normals: regular rate and regular rhythm Rate: regular rate Rhythm: regular rhythm GI: Common normals: Normal to inspection, nondistended, normoactive bowel sounds present and soft to palpation Inspection: normal to inspection and other (Incision well approximated, no bleeding or discharge. ) Auscultation: normoactive bowel sounds Palpation: soft and tender : Uterus: U/U and firm Lochia: small Back & Pelvis: Common normals: thoracic and lumbar spine normal to inspection Thoracic spine/upper back: normal to inspection and thoracic ROM normal Lumbar spine/lower back: normal to inspection and lumbar ROM normal Extremity: Common normals: full ROM General: normal exam except as noted; no edema ([place], +1) Neuro: Common normals: oriented x3 Sensorium/orientation: awake, alert, oriented to person, oriented to place and oriented to time Speech: speech normal Psych: Common normals: mental status grossly normal, thought process normal and speech normal Appearance: grossly normal and well kempt Attitude: calm and engaged Activity/motor behavior: appropriate eye contact Speech: normal speech Thought process: normal thought process Thought content: normal thought content Attention/concentration: attention grossly intact Memory/cognition: memory grossly intact Insight: insight good Judgement: judgment good Skin: Common normals: no rashes or lesions noted General skin exam: no rashes or lesions noted DS: Data Data Completed and Pending Labs on day of discharge: Labs from last 24 hours 12/10/21 12/10/21 11:10 11:10 WBC 11.73 H RBC 3.65 L Hgb 10.7 L Hct 32.5 L MCV 89 MCH 29 MCHC 33 Plt Count 222 BUN 9 Creatinine 0.6 Estimated Creat Clear 97.81 Estimated GFR 119 AST 48 H ALT 19 OB - DS: Summary Hospital Course Hospital Course: Letty is a 36 year old G 3 P 1 at 39 5/7 weeks gestation that was admitted to the Center on 12/06/21 for SROM. She had an uncomplicated delivery d/t prolonged rupture of membranes >48hours and bradycardia. She delivered a viable male infant, Hector. She is breast feeding with no concerns. the patient has done well. Blood pressures were trending upwards, but did not reach HTN levels. Pt reports feeling great and ready to go home. Pre-eclampsia labs were drawn and other than a slightly elevated AST were WLN. Consulted with Dr. Wilkins and decision made for discharge today and normal follow up. Peripartum Data Procedures: Procedures Operation Date: 12/08/21 15:00 Actual Procedure Side Surgeon p Section Letitia Arthur MD complications: none [place] Infant Gender: Male Discharge Plan: Home Status at Discharge Functional status at discharge: independent ambulation Overall status at discharge: patient is progressing back to baseline Time Spent with Patient Time attestation: Total time spent providing and/or coordinating discharge services: Time spent: Greater than 30 minutes Discharge Plan Discharge Disposition: Home, Self-Care Date of Admission: 12/06/21 16:30 Attending Provider on Discharge: Victoria Haley Primary Care Provider: Provider,Not a Local Condition: Stable Anticipated Discharge Date/Time: 12/10/21 14:14 Discharge Medications: New docusate sodium 100 mg Capsule 100 mg PO DAILY PRNQty: 100 0RF Rx Instructions: Take 1 cap 1-2 times a day as needed for constipation ibuprofen 600 mg Tablet 600 mg PO Q6H PRN (Reason: Pain) Qty: 60 0RF oxycodone 5 mg Tablet 5 - 10 mg PO Q4H PRN (Reason: Pain) Qty: 20 0RF Continued bupropion HCl 150 mg tablet extended release 24 hr 150 mg PO DAILY DHA 200 mg capsule 200 mg PO DAILY Discontinued aspirin 81 mg tablet,delayed release (DR/EC) 81 mg PO DAILY Discharge Orders: Discharge Order (Routine); Ordered 12/10/21 Ordered By: Victoria Haley Patient Education: OB /Breast Feeding Activity Restrictions/Additional Instructions: 2-week visit: incision check, discuss feeding concerns, review control options and screen for anxiety/depression. 6-week visit for an annual exam. Activity Level: Activity as Tolerated Discharge Diet: Regular Follow Up Appointments: [facility] [Provider Group] Forms: [employer] Info Instructions
[2021-12-10 14:18] VITALS: TEMP 36.6
== END 2021-12-10 16:15 | disposition home or self-care (01) | DRG 788 ==
LOC: OB CLI 17:12 → OB 17:12
PROVIDERS: Advanced Practice Midwife; Obstetrics & Gynecology; Admitting Provider Advanced Practice Midwife; Visit Provider Advanced Practice Midwife
PROC: (CPT 59514; principal; 2021-12-08 14:45)
DX: O42.12 Full-term premature rupture of membranes, onset of labor more than 24 hours following rupture (principal); O76 Abnormality in fetal heart rate and rhythm complicating labor and delivery; R03.0 Elevated blood-pressure reading, without diagnosis of hypertension; O99.344 Other mental disorders complicating childbirth; F41.9 Anxiety disorder, unspecified; Z3A.39 39 weeks gestation of pregnancy; Z37.0 Single live birth
CPT/HCPCS: 01967; 01968; 36415; 59200; 64488; 76815; 76942; 82565; 82962; 84112; 84450; 84460; 84520; 85018; 85025; 85027; 86850; 86900; 86901; 87635; 88307; 99140; A9270; C9290; J1885; J2270; J2370; J2405; J2795; J3010; J3490; J7120

== ENCOUNTER 2022-08-24 08:30 | Outpatient (CLI) | payer OTHER, SELFPAY ==
--- NOTE | 2022-08-24 08:15 | CRLHL7_ITS ---
For Patients: As a result of the Cures Act, medical imaging exams and procedure reports are released immediately into your electronic medical record. You may view this report before your referring provider. If you have questions, please contact your health care provider. INDICATION: First trimester scan, establish dates. COMPARISON: None. TECHNIQUE: Real-time mcgowan-scale imaging of the pelvis was performed. FINDINGS: Sonographic imaging demonstrates a single living intrauterine gestation. The embryo demonstrates a regular cardiac rate measuring 173 beats per minute. The embryo`s crown-rump length measurement of 1.5 cm corresponds to a gestational age of 7 weeks 6 days with a sonographic due date of April 06, 2023. There is a normal-appearing yolk sac. There are no gross abnormalities noted within the embryo at this early state of development. The placenta has not yet developed. The gestational sac has a normal appearance and there is no evidence of a perigestational hemorrhage. The amount of fluid within the sac appears appropriate for gestational age. The cervix is closed. The myometrium appears normal. The ovaries are of normal size. The right ovary measures 3.1 x 2.0 x 2.3 cm and contains a corpus luteum cyst of measuring 1.8 x 1.6 x 1.9 cm. The left ovary measures 2.4 x 1.2 x 1.2 cm. There are no suspicious fluid collections noted in the cul-de-sac. IMPRESSION: Normal first trimester OB ultrasound exam. Gestational age calculated at 7 weeks 6 days with a sonographic due date of April 06, 2023. Dictated by Ian Brownlee MD @ 08/24/2022 9:22:34 AM (Electronically Signed)
== END 2022-08-24 08:31 | disposition home or self-care (01) ==
PROVIDERS: Visit Provider Advanced Practice Midwife
DX: Z34.91 Encounter for supervision of normal pregnancy, unspecified, first trimester (principal); Z3A.08 8 weeks gestation of pregnancy
CPT/HCPCS: 76817; 86703; 86803; 86850; 87086; 87340

== ENCOUNTER 2022-08-24 10:30 | Outpatient (CLI) | payer OTHER, SELFPAY | END 2022-08-24 10:31 | disposition home or self-care (01) | LOC: NFLDREF 08-25 18:29 | PROVIDERS: Visit Provider Advanced Practice Midwife | DX: Z34.91 Encounter for supervision of normal pregnancy, unspecified, first trimester (principal); Z3A.08 8 weeks gestation of pregnancy | CPT/HCPCS: 86592; 86703; 86762; 86787; 86803; 86850; 87086; 87340 ==

== ENCOUNTER 2022-11-27 09:10 | Outpatient (CLI) | payer OTHER, SELFPAY ==
--- NOTE | 2022-11-27 09:15 | CRLHL7_ITS ---
For Patients: As a result of the Century Cures Act, medical imaging exams and procedure reports are released immediately into your electronic medical record. You may view this report before your referring provider. If you have questions, please contact your health care provider. INDICATION: Evaluate anatomy. COMPARISON: 08/24/2022 TECHNIQUE: Real time mcgowan scale imaging of the fetus was performed as well as color Doppler analysis of the umbilical vessels. FINDINGS: Sonographic imaging demonstrates a single living intrauterine gestation. Fetus demonstrates a regular cardiac rate of 157 beats per minute. Fetus has a variable position. The placenta lies anterior without evidence of placenta previa. The placental edge is 6.1 cm from the internal cervical os. Amniotic fluid volume appears normal. Single deepest vertical pocket: 4.5 cm. The cervix is closed and measures 3.2 cm in length. The composite ultrasound gestational age is calculated at 621 weeks 1 day with an estimated sonographic due date of 04/08/2023. The estimated weight is 445 grams which lies at the 60th %. The following biometric measurements were obtained: Biparietal diameter: 4.6 cm/19 weeks 5 days 3rd% Head circumference: 18.1 cm/20 weeks 4 days 10th% Abdominal circumference: 16.7 cm/27 weeks 5 days 53rd% Femur length: 3.8 cm/22 weeks 1 day 67th% The HC/AC ratio measures: 1.09 range (1.06-1.25) On anatomic survey, there is a normal appearance of the cerebral ventricles, cavum septi pellucidi, cisterna magna and cerebellum. The nose, lips, and facial profile appear normal. Possible cystic structure anterior to the sacrum measuring 4-5 millimeters. There is a normal four-chamber heart view and the left and right ventricular outflow tracts appear normal. The diaphragm and stomach appear normal. The kidneys and bladder also appear normal. There is a normal three-vessel cord and cord insertion site. The four extremities appear normal. IMPRESSION: Sonographic gestational age 21 weeks 1 day and sonographic due date 04/08/2023. Good correlation with dates. Estimated weight 60th percentile. Abdominal circumference 53rd percentile. Cystic structure may be present anterior to the sacrum measuring 4-5 millimeters. Level 2 Maternal Medicine ultrasound consultation recommended. Remainder of the anatomic survey is normal. Dictated by Dejon Robles MD @ 11/27/2022 11:50:05 AM (Electronically Signed)
== END 2022-11-27 09:11 | disposition home or self-care (01) ==
PROVIDERS: Visit Provider Obstetrics & Gynecology
DX: Z34.92 Encounter for supervision of normal pregnancy, unspecified, second trimester (principal); Z3A.20 20 weeks gestation of pregnancy
CPT/HCPCS: 76805

== ENCOUNTER 2023-02-05 09:40 | Outpatient (CLI) | payer OTHER, SELFPAY ==
--- OUTSIDE RECORDS SUMMARY | 2023-02-10 05:35 | XMS_ITS | Continuity of Care Document ---
Author Name Unknown Organization [facility] Address [address] [address] [place] [address] Phone Care Team Providers Care Research Contracts Supervisor Name Role Phone Unavailable Unavailable Unavailable Allergies, Adverse Reactions, Alerts Substance Reaction Status Criticality No Known Allergies Active No Inform ation Medications Medication Instructions Dosage Effective Dates (start - stop) Status Comments Wellbutrin XL 150 mg 24 hr tablet, extended release take 1 tablet by oral route every day 150 MG - Active Herbal Medications/Supple ments unknown - Active norplant matilde h control in the arm for 3 years Procedures Procedure Date Offic/outpt E&m [facility] 8 Advance Directives Directive Yes / No Effective Date File Name No Information Encounters Encounter Description Practice Location Reason(s) For Visit Diagnoses Date Provider Providers Copied on Encounter Offic/outpt E&m [facility], [address] [address], [place], [place], [id number], [place] tel:[phone] [facility] GI Symptoms or Concerns (chief complaint) Appendicitis with abscess 8 No Information Referring Provider: Referral Self, USE FOR SELF REFERRALS. Family History Family Member Type Diagnosis Age At Onset Mother Problem (finding) Alive and well Brother Problem (finding) Alive and well Father Problem (finding) hypertension Payers Payer name Insurance type Covered constitution party ID Authorshiraa tinaveen(s) [facility] CI [id number] Social History Type Description Quantity Date Captured Comments Alcohol Use Details Caffeine Use Details Unknown Tobacco Use Status Never smoked tobacco 2017 Smoking Status Never smoker Non-Smoking Tobacco Use Details : No Details Available : No Details Available Sex Female Vital Signs Date / Time: Height Weight BMI Pulse Rate Blood Pressure Temperature Respiratory Rate Body Surface Area Head Circumference Head Circ. Percentile Wt./German. Percentile BMI percentile Pulse Ox Inhaled Ox 10:54 AM 61.00 in 51.710 kg (114.00 lbs) 21.5 4 kg/m eter (2) 67 /min 118/76 mm[Hg] Chief Complaint And Reason For Visit From encounter dated 09/20/2017 11:00'. GI Symptoms or Concerns (chief complaint). Description: This patient is a 31-year-old female from [place], [place], who is seen today for further opinion regarding recent illness, which began on or around September 05, 2017, with acute onset of severe right lower quadrant abdominal pain. The patient was accompanied today by her father who provided some of the history, also. Additional information was obtained from review of outside records, which had been previously procured. 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 She has performed her services worldwide for the last 2 years. The patient was awakened from a sound sleep on September 05, 2017, with severe right lower quadrant abdominal pain. The patient was seen on that date at a Walk-In Clinic Facility in [place]. I understand that laboratory testing showed a [...] a thick enhancing wall. There is surrounding inflammatory change. There is focal enlargement or fluid collection within the distal appendixmeasuring 2.6 x 1.7 cm suspicious for abscess. There is wall thickening of the distal cecum. A small amount of free fluid was noted in the pelvis, but there was no evidence of any free air. Accordingto the report, the radiologist felt the changes were consistent with acute appendicitis" and were suspicious for abscess. The patient was started on antibiotic therapy and she told me today that she has just finished the course of antibiotics. She was seen by the surgical instrument repair specialist in [place] on September 14, 2017, and was advised to continue antibiotic therapy. Longer term plans were to repeat the CT scan in 4 to 6 weeks and to go ahead with appendectomy, if inflammatory changes have resolved. 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 Instead my [...] and tenderness. The discomfort is worse, if shewalks or lifts something, but it has not awakened her from sleep. The patient had previously been having a low grade fever, but she noted that she has been afebrile for the last 3 days. She has not had any chills. The patient has had no nausea, vomiting, hematemesis, reflux symptoms or dysphagia. Her appetite has been good and she has lost a few pounds in weight.Normally, the patient has 1 formedstool daily. Currently, she is having 2 movements per day with the initial stool being somewhat soft and normally formed and in the second stool somewhat looser in consistency. However, the patient has had no blood in the stool nor any melena. The patient denies any other prior history of gastrointestinal problems. Her family history is said to be negative for colon cancer, inflammatory bowel dise ase, or any other major gastrointestinal disorders.The patient has otherwise been very healthy. Shedoes have a history of anxiety. She does not smoke or abuse alcohol. There are no known medication allergies. Regular medications include herbal supplement and Wellbutrin. Reason For Referral Reason For Referral No Information History Of Present Illness Encounter Date Complaint History Of Ramos nt Illness GI Symptoms or Concerns This jeffrey loving is a 31-year-old female from [place], [place], who is seen today for further opinion regarding recent illness, which began on or around September 05, 2017, with acute onset of severe right lower quadrant abdominal pain. The patient was accompanied today by her father who provided some of the history, also. Additional information was obtained from review of outside records, which had been previously procured. 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 She has performed her services worldwide for the last 2 years. The patient was awakened from a sound sleep on September 05, 2017, with severe right lower quadrant abdominal pain. The patient was seen on Functional Status Date Functional Assessmen t No Information Instructions Date Instruction Additional Infor matphilip I did discuss option s available with the patient and her father. These, however, [...] the patient elected was to return to [place] and follow up with her surgeon, Dr. [...] that their questions have been addressed satisfactorily. Related to Appendicitis with abscess Assessments Type Assessment Date assessment Appendicitis with abscess impression The patient presents to the clinic today for further opinion regarding an acute illness which began with severe acute right lower quadrant pain on September 05, 2017. Mild leukocytosis was noted. Few days later specifically on September 10, 2017, the patient had a CT scan of the abdomen/pelvis, which was interpreted to show changes consistent with acute appendicitis and possible/probable appendiceal abscess. The patient has recently finished a course of antibiotic therapy and continues to have some mild right lower quadrant discomfort. On exam today, she did have some right lower quadrant tenderness without any peritoneal findings or palpable mass. As discussed with the patient and her father who was present, overall it appears that the patient's symptoms can be explained on the basis of appendicitis and appendiceal abscess. The inflammatory changes involving the terminal ileum and a portion of the cecum as described on the CT scan are probably reactive in nature. I am aware that concern has been raised that the patient could have inflammatory bowel disease i.e. specifically Crohn's. However, as we discussed today, the presentation here is certainly not suggestive of Crohn's disease. Under the circumstances, we would strongly advise against colonoscopy. I did discuss the situation with several of my colleagues and all were in agreement with this assessment. Mental Status Date Cognitive Assessment Orientation - [place] ed to time, place, person, situation. Patient Care Teams Name Effective Dates (start - stop) Status Members No Information
== END 2023-02-05 09:41 | disposition home or self-care (01) ==
LOC: NFLDREF 02-10 05:33
PROVIDERS: Referring Provider Obstetrics & Gynecology; Visit Provider Obstetrics & Gynecology
DX: Z34.90 Encounter for supervision of normal pregnancy, unspecified, unspecified trimester (principal)
CPT/HCPCS: 86592

== ENCOUNTER 2023-02-24 20:25 | Outpatient (CLI) | payer OTHER, SELFPAY ==
--- OUTSIDE RECORDS SUMMARY | 2023-02-24 20:27 | XMS_ITS | Continuity of Care Document ---
Author Name Unknown Organization [facility] Address [address] [address] [place] [address] Phone Care Team Providers Care Assistant Service Manager Name Role Phone Unavailable Unavailable Unavailable Allergies, [...] 3 years Procedures Procedure Date Offic/outpt E&m [facility] 8 Advance Directives Directive Yes / No Effective Date File Name No Information Encounters Encounter Description Practice Location Reason(s) For Visit Diagnoses Date Provider Providers Copied on Encounter Offic/outpt E&m [facility], [address] [address], [place], [place], [id number], [place] tel:[phone] [facility] GI Symptoms or Concerns (chief complaint) Appendicitis with abscess 8 No Information Referring Provider: Referral Self, USE FOR SELF REFERRALS. 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 She has performed her services worldwide for the last 2 years. The patient was awakened from a sound sleep on September 05, 2017, with severe right lower quadrant abdominal pain. The patient was seen on that date at a Walk-In Clinic Facility in [place]. I understand that laboratory testing showed a [...] of antibiotics. She was seen by the c consultant in [place] on September 14, 2017, and was advised to continue antibiotic therapy. Longer term plans were to repeat the CT scan in 4 to 6 weeks and to go ahead with appendectomy, if inflammatory changes have resolved. 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 She has performed [...] the patient elected was to return to [place] and follow up with her surgeon, Dr. [...] Mental Status Date Cognitive Assessment Orientation - [place] ed to time, place, person, situation. Patient Care Teams Name Effective Dates (start - stop) Status Members No Information
[2023-02-24 20:49] VITALS: BP 104/59; PULSE 87
[2023-02-24 21:02] VITALS: RESP 16; TEMP 36.7
--- NOTE | 2023-02-24 22:16 | PC.OBNST ---
NST Note NST Note Start: 02/24/23 20:37 Freq: ONCE Status: Active Protocol: Document 02/24/23 22:14 NARAYAN (Rec: 02/24/23 22:16 NARAYAN [id number]) NST Note 4 Para (# of births) 1 EDC [birth year] Gestational Age In Weeks & Days 34 Weeks & 2 Days Patient Presented with Complaint(s) of Decreased movement, Headache Reactive Yes Appropriate for Gestational Age Yes FIORDALIZA Murdock, RN Date 02/24/23 Reactive Yes Appropriate for Gestational Age Yes FIORDALIZA [place], FIORDALIZAC Date 02/24/23 OB NST charge Yes Complete NST Note via Write Note Yes The provider's electronic signature indicates the NST is reactive/appropriate for gestational age. *Note to provider: If an addendum is required, open the patient's chart and click on the note under the Nurse/Allied Health tab.
== END 2023-02-24 21:41 | disposition home or self-care (01) ==
LOC: OB OUT 20:25 → OB 20:26
PROVIDERS: Visit Provider Advanced Practice Midwife
DX: O36.8130 Decreased fetal movements, third trimester, not applicable or unspecified (principal); Z3A.34 34 weeks gestation of pregnancy
CPT/HCPCS: 59025; 99213

== ENCOUNTER 2023-03-12 09:50 | Outpatient (CLI) | payer OTHER, SELFPAY ==
--- OUTSIDE RECORDS SUMMARY | 2023-03-17 11:44 | XMS_ITS | Referral Summary ---
Author Name Unknown Organization [facility] Address [address] [place] [address] Care Team Providers Care Rehabilitation Technician Name Role Phone RamiroShannen tony TYLOR MASSEY Primary Care Provider Arlyn Brown MD Unavailable [phone] Encounters Date Type Department Care Team Description 01/25/2023 Travel 01/25/2023 10:45 AM BLOOD BANK MANAGER Office Visit [facility] Maternal Medicine [facility] [address] [place] [phone] Yordy Layne MD Sabol, Bethany, MD abnormality affecting management of mother, single or unspecified fetus (Primary Dx) 01/25/2023 10:07 AM BLOOD BANK MANAGER - 01/25/2023 11:59 PM BLOOD BANK MANAGER Hospital Encounter [facility] Maternal Medicine [facility] [address] [place] [phone] Yordy Layne MD Sabol, Bethany, MD abnormality affecting management of mother, single or unspecified fetus Discharge Disposition: Home or Self Care 01/24/2023 Travel from Last 3 Months Social History Tobacco Use Types Packs/Day Years Used Date Smoking Tobacco: Never Assessed Adolescent Education Answer Date Record ed Getting School Help Needed Not on file 11/28 Estimated Date of Delivery Comme nts Yes 04/05/2023 Based on Est. Da te of Conception Sex and Gender Information Value Date Recorded Sex Assigned at Not on file Gender Identity Not on file Sexual Orientation Not on file Plan of Treatment Not on file Procedures Procedure Name Priority Date/Time Associated Diagnosis Comments [facility] COMPREHENSIVE SINGLE F/U Routine 01/25/2023 10:44 AM BLOOD BANK MANAGER abnormality affecting management of mother, single or unspecified fetus from Last 3 Months Results * [facility] US Comprehensive Single F/U (01/25/2023 10:44 AM BLOOD BANK MANAGER) Anatomical Region Laterality Modality Ultrasound 01/25/2023 10:0 5 AM BLOOD BANK MANAGER Impressions 01/25/2023 4:20 PM BLOOD BANK MANAGER IMPRESSION ----- 1. Hong intrauterine at 29w 6d gestational age. 2. None of the anomalies commonly detected by ultrasound were evident in the limited anatomic survey as described above, anatomy limited by gestational age and lie. Specifically a normal rectum is identified. 3. Growth parameters and estimated weight were consistent with established dates. 4. The amniotic fluid volume appeared normal. Narrative 01/25/2023 4:20 PM BLOOD BANK MANAGER ?Comp Follow Up ----- Pat. Name: LETTY TOM ? Study Date: ??01/25/2023 10:05am Pat. NO: ??[id number] ?Referring ??MD: SHANNEN FRAUSTO Site: [facility] ? Protection Engineer: Franki Jacskon RDMS : ??1985 ?Age: ?? 37 ----- INDICATION ----- Advanced Maternal Age. Reevaluate rectum. METHOD ----- Transabdominal ultrasound examination. View: Sufficient ----- Hong . Number of fetuses: 1 DATING ----- ? Date ?Details ?Gest. age ?NADEEM LMP ?06/23/2022 ? 30 w + 6 d ? 03/30/2023 Conception ? 07/13/2022 ?30 w + 0 d ? 04/05/2023 Prior assessment ? 08/24/2022 ? GA: 7 w + 6 d ?29 w + 6 d ? 04/06/2023 U/S ? 01/25/2023 ? based upon AC, BPD, Femur, HC ? 30 w + 0 d ? 04/05/2023 Assigned dating ?Dating performed on 01/25/2023, based on the prior assessment (on 08/24/2022) ? 29 w + 6 d ? 04/06/2023 GENERAL EVALUATION ----- Cardiac activity present. FHR 162 bpm. movements present. Presentation transverse with head to maternal right. Placenta Anterior, No Previa, > 2 cm from internal os. Umbilical cord 3 vessel cord. Amniotic fluid Amount of AF: normal. MVP 6.4 cm. BIOMETRY ----- Main Biometry: BPD ?73.2 ?mm ? 29w 3d ?Santana PRATT ?96.4 ?mm ? 28w 3d ?Nicolaides HC ?272.6 ?mm ?29w 5d ?Hadlock Cerebellum tr ?35.5 ? mm ?30w 4d ?Nicolaides AC ?258.4 ?mm ?30w 0d ?49% ?Hadlock Femur ?58.4 ? mm ?30w 4d ?Hadlock Weight Calculation: EFW ? 1,509 ?g ? 45% ?Hadlock EFW (lb,oz) ? 3 lb 5 ?oz EFW by ?Hadlock ([id number]) Head / Face / Neck Biometry: Turner In ? 2.7 ? mm CM ?7.1 ? mm ANATOMY ----- The following structures appear normal: Head / Neck ? Cranium. Head size. Head shape. Lateral ventricles. Midline falx. Cavum septi pellucidi. Cerebellum. Cisterna magna. Thalami. Face ? Lips. Profile. Nose. Heart / Thorax ?4-chamber view. RVOT view. LVOT view. 5-lndgdz-kcaimeb view. ? Diaphragm. Abdomen ? Stomach. Kidneys. Bladder. The following structures were documented previously: Spine ?Cervical spine. Thoracic spine. Lumbar spine. Sacral spine. Gender: female. MATERNAL STRUCTURES ----- Cervix ?Not examined Right Ovary ?Not examined Left Ovary ?Not examined RECOMMENDATION ----- Thank-you for referring your patient for ultrasound assessment. I discussed the findings on today's ultrasound with the patient. Further ultrasound studies as clinically indicated Return to primary provider for continued care. If you have questions regarding today's evaluation or if we can be of further service, please contact the [facility]. anomalies may be present but not detected Procedure Note Arlyn Brown MD - 01/25/2023 Comp Follow Up ----- Pat. Name: LETTY TOM Study Date: 01/25/2023 10:05am Pat. NO: [id number] Referring MD: SHANNEN FRAUSTO Site: [facility] Protection Engineer: Franki Jackson RDMS : 1985 Age: 37 ----- INDICATION ----- Advanced Maternal Age. Reevaluate rectum. METHOD ----- Transabdominal ultrasound examination. View: Sufficient ----- Hong . Number of fetuses: 1 DATING ----- DateDetailsGest. age NADEEM LMP w + 6 d 03/30/2023 Conception w + 0 d 04/05/2023 Prior assessment 08/24/2022 GA: 7 w +6 d29 w + 6 d 04/06/2023 U/S 3based upon AC, BPD, Femur, HC30 w + 0 d 04/05/2023 Assigned dating Dating performed on 01/25/2023, based onthe prior assessment (on 08/24/2022) 29 w + 6 04/06/2023 GENERAL EVALUATION ----- Cardiac activity present. FHR 162 bpm. movements present. Presentation transverse with head to maternal right. Placenta Anterior, No Previa, > 2 cm from internal os. Umbilical cord 3 vessel cord. Amniotic fluid Amount of AF: normal. MVP 6.4 cm. BIOMETRY ----- Main Biometry: BPD 73.2 mm29w 3d Hadlock OFD 96.4 mm28w 3d Nicolaides HC 272.6 mm29w 5d Hadlock Cerebellum tr 35.5 mm30w 4d Nicolaides AC 258.4 mm30w 0d 49% Hadlock Femur 58.4 mm30w 4d Hadlock Weight Calculation: EFW 1,509 g45% Hadlock EFW (lb,oz) 3 lb 5 oz EFW by Hadlock ([id number]) Head / Face / Neck Biometry: Turner In 2.7 mm CM 7.1 mm ANATOMY ----- The following structures appear normal: Head / Neck Cranium. Head size. Head shape.Lateral ventricles. Midline falx. Cavum septi pellucidi. Cerebellum.Cisterna magna. Thalami. Face Lips. Profile. Nose. Heart / Thorax 4-chamber view. RVOT view. LVOT view.6-byhevv-llrxynr view. Diaphragm. Abdomen Stomach. Kidneys. Bladder. The following structures were documented previously: Spine Cervical spine. Thoracic spine.Lumbar spine. Sacral spine. Gender: female. MATERNAL STRUCTURES ----- Cervix Not examined Right Ovary Not examined Left Ovary Not examined RECOMMENDATION ----- Thank-you for referring your patient for ultrasound assessment. Idiscussed the findings on today's ultrasound with the patient. Further ultrasound studies as clinically indicated Return to primary provider for continued care. If you have questions regarding today's evaluation or if we can be offurther service, please contact the [facility]. anomalies may be present but not detected IMPRESSION ----- 1. Hong intrauterine at 29w 6d gestational age. 2. None of the anomalies commonly detected by ultrasound were evident inthe limited anatomic survey as described above, anatomy limited bygestational age and lie. Specifically a normal rectum is identified. 3. Growth parameters and estimated weight were consistent withestablished dates. 4. The amniotic fluid volume appeared normal. Yordy Layne MD [facility] US ORDERAB LES from Last 3 Months Care Teams Rehabilitation Technician Relationship Specialty Start Date End Date Shannen Frausto APRN CNM [facility] [address] [place] [address] PCP - General label drier 11/27/22 Arlyn Brown MD [id number] [id number] Assigned OBGYN Provider 01/30/23
--- OUTSIDE RECORDS SUMMARY | 2023-03-17 11:44 | XMS_ITS | Clinical Summary ---
Author Name Unknown Organization [facility] Address [address] [place] [address] Care Team Providers Care Casing Tier Name Role Phone RamiroShannen tony TYLOR MASSEY Primary Care Provider Arlyn Brown MD Unavailable [phone] Encounters Date Type Department Care Team Description 01/25/2023 10:45 AM TONGUE AND QUARTER STITCHER Office Visit [facility] Maternal Medicine [facility] [address] [place] [phone] Yordy Layne MD Sabol, Bethany, MD abnormality affecting management of mother, single or unspecified fetus (Primary Dx) 01/25/2023 10:07 AM TONGUE AND QUARTER STITCHER - 01/25/2023 11:59 PM TONGUE AND QUARTER STITCHER Hospital Encounter [facility] Maternal Medicine [facility] [address] [place] [phone] Yordy Layne MD Sabol, Bethany, MD abnormality affecting management of mother, single or unspecified fetus Discharge Disposition: Home or Self Care 01/25/2023 Travel 01/24/2023 Travel from Last 3 Months Social [...] Orientation Not on file Plan of Treatment Health Maintenance Due Date Last Done Comments ADVANCE CARE PLANNING 1985 ANNUAL REVIEW OF HM ORDERS 1985 YEARLY PREVENTIVE VISIT 1985 HIV SCREENING 2000 HEPATITIS C SCREENING 09/30/2003 PAP 2006 MATERNAL SCREENING DISCUSSION 09/07/2022 OBGCT (OB) 12/14/2022 GROUP B STREP SCREENING 03/08/2023 PHQ-2 (once per calendar year) 2023 DTAP/TDAP/TD IMMUNIZATION (9 - Td or Tdap) 02/22/2033 02/22/2023, 10/02/2021, 03/15/2018, Additional history exists IPV IMMUNIZATION Completed 06/08/1991, , 07/24/1986, Additional history exists HEPATITIS B IMMUNIZATION Completed 005, 10/04/2002, 01/24/2001 MENINGITIS IMMUNIZATION Aged Out 09/23/2004, 09/23 No longer eligible based on patient's age to complete this topic HPV IMMUNIZATION Completed 11/12/2009, 09/2009, 08/16/2009, Additional history exists COVID-19 Vaccine Completed 02/05/2023, 08/2021, 04/18/2020, Additional history exists INFLUENZA VACCINE Completed 02/05/2023, , 04/23/2021, Additional history exists Pneumococcal Vaccine: Pediatrics (0 to 5 Years) and At-Risk Patients (6 to 64 Years) Aged Out No longer eligible based on patient's age to complete this topic RSV MONOCLONAL ANTIBODY Aged Out No l onger eligible based on patient's age to complete this topic RSV VACCINE ( & 60+) (No Doses Required) Completed Procedures Procedure Name Priority Date/Time Associated Diagnosis Comments [facility] US COMPREHENSIVE SINGLE F/U Routine 01/25/2023 10:44 AM TONGUE AND QUARTER STITCHER abnormality affecting management of mother, single or unspecified fetus from Last 3 Months Results * [facility] US Comprehensive Single F/U (01/25/2023 10:44 AM TONGUE AND QUARTER STITCHER) Anatomical Region Laterality Modality Ultrasound 01/25/2023 10:0 5 AM TONGUE AND QUARTER STITCHER Impressions 01/25/2023 4:20 PM TONGUE AND QUARTER STITCHER IMPRESSION ----- 1. Hong intrauterine at 29w [...] volume appeared normal. Narrative 01/25/2023 4:20 PM TONGUE AND QUARTER STITCHER ?Comp Follow Up ----- Pat. Name: LETTY TOM ? Study Date: ??01/25/2023 10:05am Pat. NO: ??[id number] ?Referring ??MD: SHANNEN FRAUSTO Site: ??[facility] ? Fountain Brush Assembler: Franki Jackson RDMS : ??1985 ?Age: ?? 37 ----- [...] Biometry: BPD ?73.2 ?mm ? 29w 3d ?Hadkat OFD ?96.4 ?mm ? 28w 3d ?Nicolaides HC ?272.6 ?mm ?29w 5d ?Hadlock Cerebellum tr ?35.5 ? mm ?30w 4d ?Nicolaides AC ?258.4 ?mm ?30w 0d ?49% ?Hadlock Femur ?58.4 ? mm ?30w 4d ?Hadlock Weight Calculation: EFW ? 1,509 ?g ? 45% ?Hadlock EFW (lb,oz) ? 3 lb 5 ?oz EFW by ?Santana ([id number]) Head / Face / Neck Biometry: Framing Machine Tender ? 2.7 ? mm CM ?7.1 ? mm ANATOMY ----- The following structures appear normal: Head / Neck ? Cranium. Head size. Head shape. Lateral ventricles. Midline falx. Cavum septi pellucidi. Cerebellum. Cisterna magna. Thalami. Face ? Lips. Profile. Nose. Heart / Thorax ?4-chamber view. RVOT view. LVOT view. 6-alunmx-nhjkwzs view. ? Diaphragm. Abdomen ? Stomach. Kidneys. [...] TOM Study Date: 01/25/2023 10:05am Pat. NO: [id number] Referring MD: SHANNEN FRAUSTO Site: [facility] Fountain Brush Assembler: Franki Jackson RDMS : 1985 Age: 37 ----- INDICATION ----- Advanced Maternal Age. Reevaluate rectum. METHOD ----- Transabdominal ultrasound examination. View: Sufficient ----- Hong . Number of fetuses: 1 DATING ----- DateDetailsGest. age NADEEM LMP w + 6 d 03/30/2023 Conception w + 0 d 04/05/2023 Prior assessment 08/24/2022 GA: 7 w +6 d29 w + 6 d 04/06/2023 U/S 01/25/2023ased upon AC, BPD, Femur, HC30 w + [...] 3 lb 5 oz EFW by Hadlock ([id number]) Head / Face / Neck Biometry: Framing Machine Tender 2.7 mm CM 7.1 mm ANATOMY ----- The following structures appear normal: Head / Neck Cranium. Head size. Head shape.Lateral ventricles. Midline falx. Cavum septi pellucidi. Cerebellum.Cisterna magna. Thalami. Face Lips. Profile. Nose. Heart / Thorax 4-chamber view. RVOT view. LVOT view.4-gepanz-xvbvdat view. Diaphragm. Abdomen Stomach. Kidneys. Bladder. The [...] fluid volume appeared normal. Yordy Layne MD [facility] [place] LES from Last 3 Months Care Teams Casing Tier Relationship Specialty Start Date End Date Shannen Frausto APRN CNM [facility] [address] [place] [address] PCP - General flight physician 11/27/22 Arlyn Brown MD [phone] [id number] Assigned OBGYN Provider 01/30/23
--- OUTSIDE RECORDS SUMMARY | 2023-03-17 11:45 | XMS_ITS | Encounter Summary ---
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) Encounter Details Date Type Department Care Team (Late st Contact Info) Description 11/30/2022 PRE VISIT [facility] Maternal Medicine Center [address] [phone] Shayy Reese, RN Ultrasound (L2- abnormal US findings, AMA (cystic structure adjacent to sacral spine)) Social History Tobacco Use Types Packs/Day Years [...] on file Sexual Orientation Not on file documented as of this encounter Plan of Treatment Not on file documented as of this encounter Visit Diagnoses Not on filedocumented in this encounter Care Teams Councilman Relationship Specialty Start Date End Date Shannen Rubio APRN CNM [facility] [address] [place] [address] PCP - General liner installer 11/27/22 documented as of this encounter
--- OUTSIDE RECORDS SUMMARY | 2023-03-17 11:45 | XMS_ITS | Encounter Summary ---
Author Name Unknown Organization [place] Address [address] [place] [address] Care Team Providers Care Funeral Service Manager Name Role Phone Shannen Frausto APRN, CNM Primary Care Provider Reason for Referral * Diagnostic Imaging Ultrasound (Routine) - Pending Review Specialty Diagnoses / Procedures Referred By Amber sears Referred To Contact Radiology. Diagnoses related condition, antepartum Procedures [facility] US Comprehensive Single Shannen Frausto APRN CNM [address] [address] Referral ID Status Reason Start Date Expiration Date V isits Requested Visits Authorized [id number] Pending Review 11/27/2022 11/27/2023 1 1 Reason for Visit * Diagnostic Imaging Ultrasound (Routine) - Pending Review Specialty Diagnoses / Procedures Referred By Amber sears Referred To Contact Radiology. Diagnoses related condition, antepartum Procedures [facility] US Comprehensive [facility] Shannen Frausto APRN [facility] [address] [place] [address] Referral ID Status Reason Start Date Expiration Date V isits Requested Visits Authorized Pending Review 11/27/2022 11/27/2023 1 1 Encounter Details Date Type Department Care Team (Latest Contact Info) Description 11/30/2022 11:35 AM CDT - 11/30/2022 11:59 PM CDT Hospital Encounter [facility] M[facility] [address] [phone] Shannen Frausto APRN [facility] [address] [place] [address] Yordy Layne MD [address] [place], [place] [id number] related condition, antepartum Discharge Disposition: Home or Self Care Social History Tobacco Use Types Packs/Day Years [...] on file Sexual Orientation Not on file COVID-19 Exposure Response Date Recorded In the last 10 days, have yo u been in contact with someone who was confirmed or suspected to have Coronavirus/COVID-19? No / Unsure 11/30/2022 11:33 AM CDT documented as of this encounter Plan of Treatment Not on file documented as of this encounter Procedures Procedure Name Priority Date/Time Associated Diagnosis Comments [facility] US COMPREHENSIVE SINGLE Routine 11/30/2022 12:41 PM CDT related condition, antepartum documented in this encounter Results * [facility] US Comprehensive Single (11/30/2022 12:41 PM CDT) Anatomical Region Laterality Modality Ultrasound 11/30/2022 11:5 1 AM CDT Impressions 11/30/2022 1:58 PM CDT IMPRESSION ----- 1. Hong intrauterine at 21w 6d gestational age here for evaluation of anatomy. 2. No anomalies commonly detected by ultrasound or soft markers of aneuploidy were identified in the detailed anatomic survey within the limits of ultrasound. 3. There is a circular structure noted posterior to the bladder and anterior to the sacrum which is circular in appearance with internal homogeneous echogenicity and measuring 5 mm in maximum diameter. 4. Growth parameters and estimated weight were consistent with established dates. 5. The amniotic fluid volume appeared normal. 6. On transabdominal imaging the cervix appears long and closed. Narrative 11/30/2022 1:58 PM CDT Comprehensive ----- Pat. Name: NERY TMO Study Date: 11/30/2022 11:51am Pat. NO: [id number] Referring ??MD: SHANNEN FRAUSTO Site: [facility] Digital X Ray Service Engineer: Floridalma Arthur RDMS : 1985 Age: 37 ----- INDICATION ----- Advanced Maternal Age, cyst anterior to sacral spine on outside exam METHOD ----- Transabdominal ultrasound examination. View: Sufficient ----- Hong . Number of fetuses: 1 DATING ----- ? Date ?Details ?Gest. age ?NADEEM LMP ?06/23/2022 ? 22 w + 6 d ? 03/30/2023 Conception ? 07/13/2022 ?22 w + 0 d ? 04/05/2023 Prior assessment ? 08/24/2022 ? GA: 7 w + 6 d ?21 w + 6 d ? 04/06/2023 U/S ? 11/30/2022 ? based upon AC, BPD, Femur, HC ?21 w + 2 d ? 04/10/2023 Assigned dating ?Dating performed on 11/30/2022, based on the prior assessment (on 08/24/2022) ? 21 w + 6 d ? 04/06/2023 GENERAL EVALUATION ----- Cardiac activity present. FHR 151 bpm. movements present. Presentation cephalic. Placenta Placental site: anterior. No Previa, > 2 cm from internal os. Umbilical cord 3 vessel cord. Amniotic fluid Amount of AF: normal. MVP 3.5 cm. BIOMETRY ----- Main Biometry: BPD ?47.1 ?mm ? 20w 2d ?Hadlock OFD ?64.6 ?mm ? 20w 4d ?Nicolaides HC ?179.5 ?mm ?20w 3d ?Hadlock Cerebellum tr ?22.5 ? mm ?21w 2d ?Nicolaides AC ?168.5 ?mm ?21w 6d ?42% ?Hadlock Femur ?38.2 ? mm ?22w 2d ?Hadlock Humerus ?36.5 ?mm ? 22w 5d ?Rani Weight Calculation: EFW ? 450 ? g ? 39% ?Hadlock EFW (lb,oz) ? 1 lb 0 ?oz EFW by ?[facility] ([id number]) Head / Face / Neck Biometry: Billiard Table Repairer ? 5.6 ? mm CM ?3.4 ? mm Nasal bone ? 7.6 ? mm ANATOMY ----- The following structures appear normal: Head / Neck ? Cranium. Head size. Head shape. Lateral ventricles. Choroid plexus. Midline falx. Cavum septi pellucidi. Cerebellum. Cisterna magna. ? Parenchyma. Thalami. Vermis. ? Neck. Nuchal fold. Face ? Lips. Profile. Nose. Maxilla. Mandible. Orbits. Lens. Heart / Thorax ?4-chamber view. RVOT view. LVOT view. Situs. Aortic arch view. Bicaval view. Ductal arch view. Superior vena cava. Inferior vena cava. 3-vessel ? view. 4-kzwulw-dljwjrr view. Cardiac position. Cardiac size. Cardiac rhythm. ? Right lung. Left lung. Diaphragm. Abdomen ? Abdominal wall. Cord insertion. Stomach. Kidneys. Bladder. Liver. Bowel. Genitals. Spine ?Cervical spine. Thoracic spine. Lumbar spine. Sacral spine. Extremities / Skeleton ?Right arm. Right hand. Left arm. Left hand. Right leg. Right foot. Left leg. Left foot. Gender: female. Impression: 5 mm diameter echogenic circular structure posterior to the bladder and anterior to the sacrum, most consistent with the rectum. MATERNAL STRUCTURES ----- Cervix ?Visualized ? Appearance: Appears Closed ? Cervical length 32.8 mm Right Ovary ?Visualized Left Ovary ?Visualized RECOMMENDATION ----- Thank-you for referring your patient for a comprehensive ultrasound. On outside US, there was concern for a 5 mm diameter circular structure located between the bladder and the sacrum, in the location potentially of the rectum/anus. There is no distal bowel dilation or abnormal calcifications. The external genitalia appear sonographically normal. I discussed the findings on today's ultrasound with the patient and her partner. I reviewed the limitations of ultrasound both in detecting aneuploidy and structural abnormalities. Ultrasound can routinely detect 80-90% of structural abnormalities. She had low risk cell free DNA for genetic screening this . The rectum can be visualized on US with some regularity at/after 18 weeks, with a median published diameter in the second trimester of 5.6 mm (Katherine et al., 2019, J Surg Res) and today's measurements are consistent with a normal rectum in this publication. However, anal atresia is difficult if not impossible to rule out at this gestational age, and I do recommend a follow up in the third trimester ( 30 weeks) since she will be delivering at a hospital at which a diagnosis of anal atresia could not be surgically addressed, and she might need to transfer her care for delivery to a pediatric hospital if there were higher concern for anal atresia. She has been scheduled for follow up here with [facility] at 30 weeks. We will determine next steps at that time with regards to both US follow up and site of delivery. Return to primary provider for continued care. If you have questions regarding today's evaluation or if we can be of further service, please contact the Maternal- Medicine Center. anomalies may be present but not detected I spent a total of 25 minutes on the date of this encounter including preparing to see the patient (reviewing medical records/tests), counseling and discussing the plan of care, documenting the visit in the electronic medical record, and communicating with other health career development manager and/or care coordination. Procedure Note Yordy Layne MD - 11/30/2022 Comprehensive ----- Pat. Name:Tim TOM Date:11/30/2022 11:51am Pat. NO: [id number] MD:SHANNEN FRAUSTO [facility]Floridal[facility] Arthur RDMS :1985Age:37 ----- INDICATION ----- Advanced Maternal Age, cyst anterior to sacral spine on outsideexam METHOD ----- Transabdominal ultrasound examination. View: Sufficient ----- Hong . Number of fetuses: 1 DATING ----- DateDetailsGest. age NADEEM LMP w + 6 d 03/30/2023 Conception w + 0 d 04/05/2023 Prior assessment 08/24/2022 GA: 7 w +6 d21 w + 6 d 04/06/2023 U/S 11/30/2022ased upon AC, BPD, Femur, HC21 w + 2 d 04/10/2023 Assigned dating Dating performed on 11/30/2022, based onthe prior assessment (on 08/24/2022) 21 w + 6 04/06/2023 GENERAL EVALUATION ----- Cardiac activity present. FHR 151 bpm. movements present. Presentation cephalic. Placenta Placental site: anterior. No Previa, > 2 cm from internal os. Umbilical cord 3 vessel cord. Amniotic fluid Amount of AF: normal. MVP 3.5 cm. BIOMETRY ----- Main Biometry: BPD 47.1 mm20w 2d Hadlock OFD 64.6 mm20w 4d Nicolaides HC 179.5 mm20w 3d Hadlock Cerebellum tr 22.5 mm21w 2d Nicolaides AC 168.5 mm21w 6d 42% Hadlock Femur 38.2 mm22w 2d Hadlock Humerus 36.5 mm22w 5d Rani Weight Calculation: EFW 450 g39% Hadlock EFW (lb,oz) 1 lb 0 oz EFW by Santana ([id number]) Head / Face / Neck Biometry: Billiard Table Repairer 5.6 mm CM 3.4 mm Nasal bone 7.6 mm ANATOMY ----- The following structures appear normal: Head / Neck Cranium. Head size. Head shape.Lateral ventricles. Choroid plexus. Midline falx. Cavum septi pellucidi.Cerebellum. Cisterna magna. Parenchyma. Thalami. Vermis. Neck. Nuchal fold. Face Lips. Profile. Nose. Maxilla.Mandible. Orbits. Lens. Heart / Thorax 4-chamber view. RVOT view. LVOT view.Situs. Aortic arch view. Bicaval view. Ductal arch view. Superior venacava. Inferior vena cava. 3-vessel view. 9-bahpib-oboxesr view.Cardiac position. Cardiac size. Cardiac rhythm. Right lung. Left lung.Diaphragm. Abdomen Abdominal wall. Cord insertion.Stomach. Kidneys. Bladder. Liver. Bowel. Genitals. Spine Cervical spine. Thoracic spine.Lumbar spine. Sacral spine. Extremities / Skeleton Right arm. Right hand. Left arm. Lefthand. Right leg. Right foot. Left leg. Left foot. Gender: female. Impression: 5 mm diameter echogenic circular structure posterior to thefetal bladder and anterior to the sacrum, most consistent with thefetal rectum. MATERNAL STRUCTURES ----- Cervix Visualized Appearance: Appears Closed Cervical length 32.8 mm Right Ovary Visualized Left Ovary Visualized RECOMMENDATION ----- Thank-you for referring your patient for a comprehensive ultrasound. Onoutside US, there was concern for a 5 mm diameter circular structurelocated between the bladder and the sacrum, in the location potentially of the fetalrectum/anus. There is no distal bowel dilation or abnormal calcifications.The external genitalia appear sonographically normal. I discussed the findings on today's ultrasound with the patient and herpartner. I reviewed the limitations of ultrasound both in detectinganeuploidy and structural abnormalities. Ultrasound can routinely detect 80-90% of structuralabnormalities. She had low risk cell free DNA for genetic screeningthis . The rectum can be visualized on US with some regularityat/after 18 weeks, with a median published diameter in the secondtrimester of 5.6 mm (Katherine et al., 2019, J Surg Res) and today's measurements are consistent with a normalrectum in this publication. However, anal atresia is difficult if notimpossible to rule out at this gestational age, and I do recommend a follow up in the third trimester ( 30 weeks) since she will be delivering at a hospital at which a postnataldiagnosis of anal atresia could not be surgically addressed, and she might need to transfer her carefor delivery to a pediatric hospital if there were higher concern for analatresia. She has been scheduled for follow up here with M at 30 weeks. We willdetermine next steps at that time with regards to both US follow up andsite of delivery. Return to primary provider for continued care. If you have questions regarding today's evaluation or if we can be offurther service, please contact the Maternal- Medicine Center. anomalies may be present but not detected I spent a total of 25 minutes on the date of this encounter includingpreparing to see the patient (reviewing medical records/tests), counselingand discussing the plan of care, documenting the visit in the electronic medical record, andcommunicating with other health career development manager and/or carecoordination. IMPRESSION ----- 1. Hong intrauterine at 21w 6d gestational age here forevaluation of anatomy. 2. No anomalies commonly detected by ultrasound or soft markers ofaneuploidy were identified in the detailed anatomic survey withinthe limits of ultrasound. 3. There is a circular structure noted posterior to the bladder andanterior to the sacrum which is circular in appearance with internalhomogeneous echogenicity and measuring 5 mm in maximum diameter. 4. Growth parameters and estimated weight were consistent withestablished dates. 5. The amniotic fluid volume appeared normal. 6. On transabdominal imaging the cervix appears long and closed. Shannen Frausto APRN, CNM [facility] ELOY CHAR[facility] documented in this encounter Visit Diagnoses Diagnosis related condition, antepartum documented in this encounter Care Teams Funeral Service Manager Relationship Specialty Start Date End Date Shannen Frausto APRN CNM [facility] [address] [place] [address] PCP - General multiple launch rocket system crewmember 11/27/22 documented as of this encounter
--- OUTSIDE RECORDS SUMMARY | 2023-03-17 11:45 | XMS_ITS | Encounter Summary ---
Author Name Unknown Organization [place] Address [address] [place] [address] Care Team Providers Care Roof Painter Name Role Phone Shannen Frausto APRN, CNM Primary Care Provider Reason for Referral * Diagnostic Imaging Ultrasound (Routine) - Pending Review Specialty Diagnoses / Procedures Referred By Contac t Referred To Contact Radiology. Diagnoses related condition, antepartum Procedures [facility] US Comprehensive Single Shannen Frausto APRN CNM [facility] [address] [place] [address] Referral ID Status Reason Start Date Expiration Date V isits Requested Visits Authorized Pending Review 11/27/2022 11/27/2023 1 1 * Consultation (Routine: Next available opening) - Pending Review Specialty Diagnoses / Procedures Referred By Contac t Referred To Contact Diagnoses related condition, antepartum Shannen Frausto APRN CNM [facility] [address] [place] [address] [facility]aternal [facility] [address] [facility] [address] [place] [address] Referral ID Status Reason Start Date Expiration Date V isits Requested Visits Authorized [id number] Pending Review 11/27/2022 11/27/2023 1 1 Question Answer Preferred Location: [facility] [place] NADEEM 03/30/2023 Ultrasound Comprehensive US (>than 18 weeks GA) US PROC NONE MFM Issue Abnormal Ultrasound Findings (enter details in Comments) - abnormal US findings, AMA GARDENIAM MD Consultation (unrelated to Ultrasound findings): No Inflammatory Bowel Disease Clinic: Joint MFM and GI Consultation: No Chronic Kidney Disease: Joint MFM and Nephrology Consultation No Genetic Counseling Consultation: Yes fax Shannen Manzano [facility], Comments There is no height or weight on file to calculate BMI. >> Patient may proceed with recommendations for further testing as directed by the Maternal Medicine Specialist >> >> If requesting Echo: MFM will determine appropriate location for exam due to indication. >> If requesting Lung Maturity Amnio: If results indicate lung maturity, induction or C/S is recommended within 36 hours. Please schedule accordingly. Please be aware that coverage of these services is subject to the terms and limitations of your health insurance plan. Call member services at your health plan with any benefit or coverage questions. Encounter Details Date Type Department Care Team (Latest Contact Info) Description 11/27/2022 Transcribe Orders [facility] Maternal Medicine Center [place] [address] [facility] [address] [place] [address] Shannen Frausto APRN CNM [facility] [address] [place] [address] related condition, antepartum (Primary Dx) Social History Tobacco Use Types Packs/Day Years Used Date Smoking Tobacco: Never Assessed Adolescent Education Answer Date Record ed Getting School Help Needed Not on file 11/28 Sex and Gender Information Value Date Recorded Sex Assigned at Not on file Gender Identity Not on file Sexual Orientation Not on file documented as of this encounter Plan of Treatment Scheduled Referrals Name Type Priority Associated Diagnoses Orde r Schedule Mat Med Ctr Referral - Referral Routine: Next available opening related condition, antepartum Expected: 11/27/2022 (Approximate), Expires: 11/28/2023 documented as of this encounter Results * [facility] US Comprehensive Single (11/30/2022 12:41 PM CDT) [...] 1:58 PM CDT Comprehensive ----- Pat. Name: LETTY TOM Study Date: 11/30/2022 11:51am Pat. NO: [id number] Referring ??: SHANNEN FRAUSTO Site: [facility] Pool Table Operator: Floridalma Arthur RDMS : 1985 Age: 37 [...] Biometry: BPD ?47.1 ?mm ? 20w 2d ?Santana PRATT ?64.6 ?mm ? 20w 4d ?Nicolaides ?179.5 ?mm ?20w 3d ?Hadlock Cerebellum tr ?22.5 ? mm ?21w 2d ?Nicolaides AC ?168.5 ?mm ?21w 6d ?42% ?Hadlock Femur ?38.2 ? mm ?22w 2d ?Hadlock Humerus ?36.5 ?mm ? 22w 5d ?Rani Weight Calculation: EFW ? 450 ? g ? 39% ?Hadlock EFW (lb,oz) ? 1 lb 0 ?oz EFW by ?Hadlock ([id number]) Head / Face / Neck Biometry: Trim Line Worker ? 5.6 ? mm CM ?3.4 ? [...] cava. Inferior vena cava. 3-vessel ? view. 0-azuxhg-roelpza view. Cardiac position. Cardiac size. Cardiac rhythm. [...] been scheduled for follow up here with MFM at 30 weeks. We will determine next [...] medical record, and communicating with other health outdoor emergency care technician and/or care coordination. Procedure Note Yordy Layne MD - 11/30/2022 Comprehensive ----- Pat. Name:Tim TOM Date:11/30/2022 11:51am Pat. NO: [id number] MD:SHANNEN FRAUSTO [facility]Floridalma Arthur RDMS :1985Age:37 ----- INDICATION ----- Advanced [...] (lb,oz) 1 lb 0 oz EFW by Hadlock ([id number]) Head / Face / Neck Biometry: Trim Line Worker 5.6 mm CM 3.4 mm Nasal bone [...] Superior venacava. Inferior vena cava. 3-vessel view. 3-tkojnt-nbtcvfu view.Cardiac position. Cardiac size. Cardiac rhythm. Right [...] been scheduled for follow up here with [facility] at 30 weeks. We willdetermine next steps [...] electronic medical record, andcommunicating with other health outdoor emergency care technician and/or carecoordination. IMPRESSION ----- 1. Hong intrauterine [...] long and closed. Shannen Frausto APRN, CNM [facility] US ELOY CHARLES documented in this encounter Visit Diagnoses Diagnosis related condition, antepartum- Primary related condition, antepartum documented in this encounter Care Teams Roof Painter Relationship Specialty Start Date End Date Shannen Frausto APRN CNM [facility] [address] [place] [address] PCP - General bruise trimmer 11/27/22 documented as of this encounter
--- OUTSIDE RECORDS SUMMARY | 2023-03-17 11:45 | XMS_ITS | Encounter Summary ---
Author Name Unknown Organization [place] Address [address] [place] [address] Care Team Providers Care Court Registry Officer Name Role Phone Shannen Rubio APRN RANDY Primary Care Provider Reason for Visit * Reason Comments Ultrasound RL2-circular structu re noted posterior to the bladder and anterior to the sacrum which is circular in appearance with internal homogeneous echogenicity Encounter Details Date Type Department Care Team (Late st Contact Info) Description 01/25/2023 10:45 AM TITLE ONE TEACHER Office Visit [facility] Maternal Medicine [facility] [place] [address] [facility] [address] [place] [address] Yordy Layne MD [address] [place] [address] Arlyn Brown MD [address] [place] [address] abnormality affecting management of mother, single or unspecified fetus (Primary Dx) Social History Tobacco Use Types [...] on file documented as of this encounter Progress Notes * Arlyn Brown MD - 01/25/2023 10:45 AM CST The patient was seen for an ultrasound in the Maternal- Medicine Center at the [facility] today. For a detailed report of the ultrasound examination, please see the ultrasound report which can be found under the imaging tab. If you have questions regarding today's evaluation or if we can be of further service, please contact the Maternal- Medicine Center. Arlyn Brown MD [place], SUPERVISOR [employer] PRODUCTS Maternal- Medicine [phone] (Pager) E ONE TEACHER documented in this encounter Nursing Notes * Shruthi Parada RN - 01/25/2023 10:45 AM CST Patient reports good movement, denies contractions, leaking of fluid, or bleeding. E ONE TEACHER documented in this encounter Plan of Treatment Not on file documented as of this encounter Visit Diagnoses Diagnosis abnormality affecting management of mother, single or unspecified fetus- Primary documented in this encounter Care Teams Court Registry Officer Relationship Specialty Start Date End Date Shannen Rubio APRN CNM [facility] [address] [place] [address] PCP - General service agent 11/27/22 documented as of this encounter
--- OUTSIDE RECORDS SUMMARY | 2023-03-17 11:45 | XMS_ITS | Encounter Summary ---
Author Name Unknown Organization [facility] Address [address] [place] [address] Care Team Providers Care Master Ocean Name Role Phone Shannen Frausto TYLOR CN Primary Care Provider Reason for Referral * Diagnostic Imaging Ultrasound (Routine) - Pending Review Specialty Diagnoses / Procedures Referred By Contac t Referred To Contact Radiology. Diagnoses related condition, antepartum Procedures [facility] US Comprehensive Single F/U Yordy Layne MD [address] [facility] [employer] [address] [address] Referral ID Status Reason Start Date Expiration Date V isits Requested Visits Authorized [id number] Pending Review 11/30/2022 11/30/2023 1 1 NOLOGY SPECIALIST Reason for Visit * Diagnostic Imaging Ultrasound (Routine) - Pending Review Specialty Diagnoses / Procedures Referred By Contac t Referred To Contact Radiology. Diagnoses related condition, antepartum Procedures [facility] US Comprehensive Single F/U Yordy Layne MD [address] [place] [address] Referral ID Status Reason Start Date Expiration Date V isits Requested Visits Authorized [id number] Pending Review 11/30/2022 11/30/2023 1 1 Encounter Details Date Type Department Care Team (Latest Contact Info) Description 01/25/2023 10:07 AM IMMUNOLOGY SPECIALIST - 01/25/2023 11:59 PM IMMUNOLOGY SPECIALIST Hospital Encounter [facility] [place] [address] [facility] [address] [place] [address] Yordy Layne MD [address] [place] [address] Arlyn Brown MD [address] [place] [address] abnormality affecting management of mother, single or unspecified fetus Discharge Disposition: Home or Self Care Social [...] Procedure Name Priority Date/Time Associated Diagnosis Comments [facility] US COMPREHENSIVE SINGLE F/U Routine 01/25/2023 10:44 AM IMMUNOLOGY SPECIALIST abnormality affecting management of mother, single or unspecified fetus documented in this encounter Results * [facility] US Comprehensive Single F/U (01/25/2023 10:44 AM IMMUNOLOGY SPECIALIST) Anatomical Region Laterality Modality Ultrasound 01/25/2023 10:0 5 AM IMMUNOLOGY SPECIALIST Impressions 01/25/2023 4:20 PM IMMUNOLOGY SPECIALIST IMPRESSION ----- 1. Hong intrauterine at 29w [...] volume appeared normal. Narrative 01/25/2023 4:20 PM IMMUNOLOGY SPECIALIST ?Comp Follow Up ----- Pat. Name: LETTY TOM ? Study Date: ??01/25/2023 10:05am Pat. NO: ??[id number] ?Referring ??MD: SHANNEN FRAUSTO Site: ??[facility] ? Medical Oncologist: Franki Jackson RDMS : ??1985 ?Age: ?? [...] Biometry: BPD ?73.2 ?mm ? 29w 3d ?Hadlock OFD ?96.4 ?mm ? 28w 3d ?Nicolaides HC ?272.6 ?mm ?29w 5d ?Hadlock Cerebellum tr ?35.5 ? mm ?30w 4d ?Nicolaides AC ?258.4 ?mm ?30w 0d ?49% ?Hadlock Femur ?58.4 ? mm ?30w 4d ?Hadlock Weight Calculation: EFW ? 1,509 ?g ? 45% ?Hadlock EFW (lb,oz) ? 3 lb 5 ?oz EFW by ?Hadlock ([id number]-FL) Head / Face / Neck Biometry: Perioperative Assistant ? 2.7 ? mm CM ?7.1 ? mm ANATOMY ----- The following structures appear normal: Head / Neck ? Cranium. Head size. Head shape. Lateral ventricles. Midline falx. Cavum septi pellucidi. Cerebellum. Cisterna magna. Thalami. Face ? Lips. Profile. Nose. Heart / Thorax ?4-chamber view. RVOT view. LVOT view. 9-teupgu-wpofteg view. ? Diaphragm. Abdomen ? Stomach. Kidneys. [...] TOM Study Date: 01/25/2023 10:05am Pat. NO: [id number] Referring MD: SHANNEN FRAUSTO Site: [facility] Medical Oncologist: Franki Jackson RDMS : 1985 Age: 37 [...] 3 lb 5 oz EFW by Hadlock ([id number]-FL) Head / Face / Neck Biometry: Perioperative Assistant 2.7 mm CM 7.1 mm ANATOMY ----- The following structures appear normal: Head / Neck Cranium. Head size. Head shape.Lateral ventricles. Midline falx. Cavum septi pellucidi. Cerebellum.Cisterna magna. Thalami. Face Lips. Profile. Nose. Heart / Thorax 4-chamber view. RVOT view. LVOT view.4-vripgo-gkbtufp view. Diaphragm. Abdomen Stomach. Kidneys. Bladder. The [...] fluid volume appeared normal. Yordy Layne MD [facility] documented in this encounter Visit Diagnoses Diagnosis abnormality affecting management of mother, single or unspecified fetus documented in this encounter Care Teams Master Ocean Relationship Specialty Start Date End Date Shannen Frausto APRN [facility] [address] [place] [address] PCP - General tank truck milk receiver 11/27/22 documented as of this encounter
--- OUTSIDE RECORDS SUMMARY | 2023-03-17 11:45 | XMS_ITS | Encounter Summary ---
Author Name Unknown Organization [facility] Address [address] [place] [address] Care Team Providers Care Chart Changer Name Role Phone Shannen Rubio APRN, CNM Primary Care Provider Encounter Details Date Type Department Care Team (Latest Contact Info) Description 11/30/2022 Travel Social History Tobacco Use Types Packs/Day Years [...] on filedocumented in this encounter Care Teams Chart Changer Relationship Specialty Start Date End Date Shannen Rubio APRN CNM [facility] [address] [place] [address] PCP - General laundry operator 11/27/22 documented as of this encounter
--- OUTSIDE RECORDS SUMMARY | 2023-03-17 11:45 | XMS_ITS | Encounter Summary ---
Author Name Unknown Organization [place] Address [address] [place] [address] Care Team Providers Care Bank Consultant Name Role Phone Shannen Rubio APRN, CNM Primary Care Provider Encounter Details Date Type Department Care Team (Latest Contact Info) Description 01/25/2023 Travel Social History Tobacco Use Types Packs/Day [...] on filedocumented in this encounter Care Teams Bank Consultant Relationship Specialty Start Date End Date Shannen Rubio APRN CNM [facility] [address] [place] [address] PCP - General supervisor opening and picking 11/27/22 documented as of this encounter
--- OUTSIDE RECORDS SUMMARY | 2023-03-17 11:45 | XMS_ITS | Encounter Summary ---
Author Name Unknown Organization [facility] Address [address] [place] [address]. [place] [address] Care Team Providers Care Electroplating Technician Name Role Phone Shannen Rubio APRN, CNM Primary Care Provider Encounter Details Date Type Department Care Team (Latest Contact Info) Description 11/27/2022 Medical Correspondence [facility] [place] [address] Outside, Provider PERINATOLOGY REFERRAL [facility] Social History Tobacco Use Types Packs/Day Years [...] on filedocumented in this encounter Care Teams Electroplating Technician Relationship Specialty Start Date End Date Shannen Rubio APRN CNM [facility] [address] [place] [address] PCP - General five piece expansion maker hand 11/27/22 documented as of this encounter
--- OUTSIDE RECORDS SUMMARY | 2023-03-17 11:45 | XMS_ITS | Encounter Summary ---
Author Name Unknown Organization [place] Address [address] [place] [address] Care Team Providers Care Installment Loan Collector Name Role Phone Shannen Rubio APRN, CNM Primary Care Provider Encounter Details Date Type Department Care Team (Latest Contact Info) Description 01/24/2023 Travel Social History Tobacco Use Types Packs/Day [...] on filedocumented in this encounter Care Teams Installment Loan Collector Relationship Specialty Start Date End Date Shannen Rubio APRN CNM [facility] [address] [place] [address] PCP - General heater worker 11/27/22 documented as of this encounter
--- OUTSIDE RECORDS SUMMARY | 2023-03-17 11:45 | XMS_ITS | Clinical Summary ---
Author Name Unknown Organization [email or web address] [facility] s & mobifriendsian Affiliates [place], [place] [address] Care Team Providers Care Sales Host Name Role Phone Clinic, [employer] Primary Care Pro vider Allergies No known active allergies Medications Medication Sig Dispensed Refills Start Date End Date Status azithromycin (ZITHROMAX) 250 mg tabletIndications:Bro nchitis Take 500 mg (2 tabs) by mouth on day 1, then 250 mg (1 tab) daily for days 2-5. 6 Tablet 0 03/10/2021 Active buPROPion (WELLBUTRIN XL) 150 mg Extended-Release tabletIndications:Anx iety TAKE ONE TABLET BY MOUTH EVERY DAY 60 Tablet 0 12/22/2021 Active Active Problems Problem Noted Date Diagnosed Date Anxiety 07/11/2020 Sleep disorder 07/11/2020 Acute phlegmonous appendicitis 10/19/2017 Resolved Problems Problem Noted Date Diagnosed Date Resolved Date Abdominal pain 09/14/2017 03/10/2021 Immunizations Name Administration Dates Next Due COVID-19 vaccine ([employer] NTCalsys 30mcg/0.3mL) PF, MDV 04/18/2020,03/28/2020 DT (Age < 7 years) 06/08/1991 DTP 02/19/1988, 8,07/24/1986,02/14 HIB PRP-D (ProHIBIT) 09/27/1987 Hepatitis B (Peds) 09/23/2004,10/04/2002, 001 Human Papilloma Virus Vaccine 11/12/2009, 010,05/30/2009 Influenza, IIV4 03/12/2017 MMR 07/29/1998,09/27/1987 Meningococcal Vaccine (Menactra) 09/23/2004 Oral Polio Vaccine 06/08/1991, 8,07/24/1986,02/14 Td (Age >=7 Years) 07/29/1998 Tdap 03/15/2018 Tuberculin (PPD) 03/15/2017 Family History Medical History Relation Name Comments Alcoholism Father Anxiety disorder Mother Depression Mother Relation Name Status Comments Father Alive Mother Alive Social History Tobacco Use Types Packs/Day Years Used Date Smoking Tobacco: Never Smokeless Tobacco: Never Tobacco Cessation:Counseling Given: Yes Alcohol Use Standard Drinks/Week Comments Yes 8 (1 standard drink = 0.6 oz pur e alcohol) PHQ-2 Answer Date Recorded PHQ-2 TOTAL SCORE 1 02/13/2021 Social Connections Answer Date Recorded Frequency of Communication with Friends and Fami ly Not on file 03/04/2021 Financial Resource Strain Answer Date R ecorded Difficulty of Paying Living Expenses Not on file 03/04/2021 Difficulty of Paying Living Expenses Not on file 03/04/2021 Sex and Gender Information Value Date Recorded Sex Assigned at Not on file Gender Identity Not on file Sexual Orientation Not on file Obstetrics History Para Term AB IAB SAB Ectopic Multiple Livin g Live Births 0 0 0 0 0 0 0 0 0 0 0 Last Filed Vital Signs Vital Sign Reading Time Taken Comments Blood Pressure 102/70 03/10/2021 9:04 AM ALUMINA PLANT SUPERVISOR Pulse 72 03/10/2021 9:04 AM ALUMINA PLANT SUPERVISOR Temperature 36.5 ??C (97.7 ??F) 03/10/2021 9:04 AM CS T Respiratory Rate 16 08/28/2019 12:0 7 PM CDT Oxygen Saturation 98% 03/10/2021 9:04 AM ALUMINA PLANT SUPERVISOR room air Inhaled Oxygen Concentration - - Weight 57.1 kg (125 lb 12.8 oz) 03/10/2021 9:04 AM ALUMINA PLANT SUPERVISOR Height 156.2 cm (5' 1.5) 03/10/2021 9:04 AM ALUMINA PLANT SUPERVISOR Body Mass Index 23.38 03/10/2021 9:04 AM ALUMINA PLANT SUPERVISOR Plan of Treatment Health Maintenance Due Date Last Done Comments HIV for age 15-65 2000 Hepatitis C screening for age 18-79 09/30/2003 Depression screening for age 12+ 02/13/2022 02/13/2021, 07/11/2020, 01/19/2020, Additional history exists Pap test for age 21-65 03/09/2022 03/09/2019, 2003 BMI (ht and wt on same day) for age 18+ 03/10/2022 03/10/2021, 08/28/2019, 03/09/2019, Additional history exists COVID-19 vaccine series ( season) 2022 04/18/2020, 03/28/2020 Influenza for age 9-49 11/06/2022 03/12/2017 Tetanus booster 03/15/2028 03/15/2018, 07/29/1998 Tdap Completed 03/15/2018 Pneumococcal series for age 6-64 Aged Out No longer eligible based on patient's age to complete this topic Care Teams Sales Host Relationship Specialty Start Date End Date Clinic, [address] [place] [address] PCP - General 10/17/20
--- OUTSIDE RECORDS SUMMARY | 2023-03-17 11:45 | XMS_ITS | Encounter Summary ---
Author Name Unknown Organization [place] Address [address] [place] [address] Care Team Providers Care Director Alliance Marketing Name Role Phone Shannen Frausto APRN [facility] Primary Care Provider Reason for Referral * Diagnostic Imaging Ultrasound (Routine) - Pending Review Specialty Diagnoses / Procedures Referred By Conttaj t Referred To Contact Radiology. Diagnoses related condition, antepartum Procedures [facility] US Comprehensive Single F/U Yordy Layne MD [address] [place] [address] Referral ID Status Reason Start Date Expiration Date V isits Requested Visits Authorized [id number] Pending Review 11/30/2022 11/30/2023 1 1 Reason for Visit * Reason Comments Ultrasound L2- cystic structure anterior to sacral spine Encounter Details Date Type Department Care Team (Late st Contact Info) Description 11/30/2022 12:15 PM CDT Office Visit [facility] [address] [phone] Shannen Frausto APRN [facility] [address] [place] [address] Yordy Layne MD [address] [place] [address] abnormality affecting management of mother, [...] AM CDT documented as of this encounter Progress Notes * Yordy Layne MD - 11/30/2022 12:15 PM CDT Please see full imaging report from ViewPoint program under imaging tab. Thank-you for referring your patient for a comprehensive ultrasound. On outside US, there was concern for a 5 mm diameter circular structure located between the bladder and the sacrum, inthe location potentially of the rectum/anus. There is [...] et al., 2019, J Surg Res) and today'smeasurements are consistent with a normal rectum in this publication. However, anal atresia is difficult if not impossible to rule out at this gestational age, and I do recommend a follow up in the third trimester (~ 30 weeks) since she will be delivering [...] discussing the plan of care, documenting the visitin the electronic medical record, and communicating with other health direct care supervisor and/or care coordination. Yordy Layne MD Maternal Medicine documented in this encounter Nursing Notes * Shayy Reese, RN - 11/30/2022 12:15 PM CDT Patient presents to [facility] for comprehensive ultrasound due to cystic structure seen near sacralspine on outside US. Reports positive movement, no pain, no contractions, leaking of fluid, or bleeding. SBAR given to [facility] MD, see their note in Epic. documented in this encounter Plan of Treatment Not on file documented as of this encounter Results * [facility] US Comprehensive Single F/U (01/25/2023 10:44 AM CEMENT MASON APPRENTICE) Anatomical Region Laterality Modality Ultrasound 01/25/2023 10:0 5 AM CEMENT MASON APPRENTICE Impressions 01/25/2023 4:20 PM CEMENT MASON APPRENTICE IMPRESSION ----- 1. Hong intrauterine at 29w [...] volume appeared normal. Narrative 01/25/2023 4:20 PM CEMENT MASON APPRENTICE ?Comp Follow Up ----- Pat. Name: LETTY TOM ? Study Date: ??01/25/2023 10:05am Pat. NO: ??[id number] ?Referring ??MD: SHANNEN FRAUSTO Site: ??[facility] ? Neurology Director: Franki Jackson RDMS : ??1985 ?Age: ?? [...] 3 lb 5 ?oz EFW by ?Hadlock ([id number]) Head / Face / Neck Biometry: Kennel Assistant ? 2.7 ? mm CM ?7.1 ? mm ANATOMY ----- The following structures appear normal: Head / Neck ? Cranium. Head size. Head shape. Lateral ventricles. Midline falx. Cavum septi pellucidi. Cerebellum. Cisterna magna. Thalami. Face ? Lips. Profile. Nose. Heart / Thorax ?4-chamber view. RVOT view. LVOT view. 1-opwuej-znymlgd view. ? Diaphragm. Abdomen ? Stomach. Kidneys. [...] TOM Study Date: 01/25/2023 10:05am Pat. NO: [id number] Referring MD: SHANNEN FRAUSTO Site: [place] Neurology Director: Franki Jackson RDMS : 1985 Age: 37 [...] 3 lb 5 oz EFW by Hadlock ([id number]) Head / Face / Neck Biometry: Kennel Assistant 2.7 mm CM 7.1 mm ANATOMY ----- The following structures appear normal: Head / Neck Cranium. Head size. Head shape.Lateral ventricles. Midline falx. Cavum septi pellucidi. Cerebellum.Cisterna magna. Thalami. Face Lips. Profile. Nose. Heart / Thorax 4-chamber view. RVOT view. LVOT view.8-ebgwyx-moojhaw view. Diaphragm. Abdomen Stomach. Kidneys. Bladder. The [...] fluid volume appeared normal. [facility] Layne MD [facility] ORDERAB LES documented in this encounter Visit Diagnoses Diagnosis abnormality affecting management of mother, single or unspecified fetus- Primary abnormality affecting management of mother, single or unspecified fetus documented in this encounter Care Teams Director Alliance Marketing Relationship Specialty Start Date End Date Shannen Frausto APRN CNM [facility] [address] [place] [address] PCP - General supervisor buffing and pasting 11/27/22 documented as of this encounter
== END 2023-03-12 09:51 | disposition home or self-care (01) ==
LOC: NFLDREF 03-17 11:43
PROVIDERS: Visit Provider Obstetrics & Gynecology
DX: Z34.93 Encounter for supervision of normal pregnancy, unspecified, third trimester (principal)
CPT/HCPCS: 87081; 87653

== ENCOUNTER 2023-03-19 09:22 | Outpatient (CLI) | payer OTHER, SELFPAY ==
--- NOTE | 2023-03-19 09:15 | CRLHL7_ITS ---
For Patients: As a result of the Century Cures Act, medical imaging exams and procedure reports are released immediately into your electronic medical record. You may view this report before your referring provider. If you have questions, please contact your health care provider. INDICATION: Uterine size-date discrepancy. TECHNIQUE: Limited transabdominal two-dimensional mcgowan-scale ultrasound examination. COMPARISON: None FINDINGS: There is a living fetus in vertex lie with gestational age of 37 weeks 4 days by LMP and 35 weeks 1 day by today`s measurements. EDC based on LMP is 04/05/2023. BPD: 8.3 cm, 33 weeks 2 days Head circumference: 30.4 cm, 33 weeks 6 days Abdominal circumference: 33.5 cm, 37 weeks 3 days Femur length: 7.0 cm, 35 weeks 5 days The weight is estimated at 2846 grams, the 23rd percentile. The heart rate is measured at 154 beats per minute and the rhythm appears regular. The amniotic fluid volume is within normal limits with 6.6 cm. The placenta is anterior and superior to the cervical os. There is no evidence of previa. IMPRESSION: 1. Living fetus in vertex lie with gestational age of 37 weeks 4 days by LMP and 35 weeks 1 day by today`s measurements. EDC based on LMP is 04/05/2023. 2. weight estimated at 2846 grams, the 23rd percentile. Dictated by Moncho Matute MD @ 03/19/2023 3:41:59 PM (Electronically Signed)
--- OUTSIDE RECORDS SUMMARY | 2023-03-19 09:26 | XMS_ITS | Clinical Summary ---
Author Name Unknown Organization [facility] s & TRADE TO REBATEian Affiliates Address [place], [place] [address] Care Team Providers Care Rubber Stamp Die Inspector Name Role Phone [facility] Pro vider Allergies No known [...] Name Administration Dates Next Due COVID-19 vaccine ([employer] 30mcg/0.3mL) PF, MDV 04/18/2020,03/28/2020 DT (Age < [...] Comments Blood Pressure 102/70 03/10/2021 9:04 AM GLOBAL DIRECTOR AIR AND CLIMATE CHANGE Pulse 72 03/10/2021 9:04 AM GLOBAL DIRECTOR AIR AND CLIMATE CHANGE Temperature 36.5 ??C (97.7 ??F) 03/10/2021 9:04 AM CS T Respiratory Rate 16 08/28/2019 12:0 7 PM CDT Oxygen Saturation 98% 03/10/2021 9:04 AM GLOBAL DIRECTOR AIR AND CLIMATE CHANGE room air Inhaled Oxygen Concentration - - Weight 57.1 kg (125 lb 12.8 oz) 03/10/2021 9:04 AM GLOBAL DIRECTOR AIR AND CLIMATE CHANGE Height 156.2 cm (5' 1.5) 03/10/2021 9:04 AM GLOBAL DIRECTOR AIR AND CLIMATE CHANGE Body Mass Index 23.38 03/10/2021 9:04 AM GLOBAL DIRECTOR AIR AND CLIMATE CHANGE Plan of Treatment Health Maintenance Due Date [...] age to complete this topic Care Teams Rubber Stamp Die Inspector Relationship Specialty Start Date End Date Clinic, [address] [place] [address] PCP - General 10/17/20
--- OUTSIDE RECORDS SUMMARY | 2023-03-19 09:26 | XMS_ITS | Encounter Summary ---
Author Name Unknown Organization [place] Address [address] [place] [address] Care Team Providers Care Hot Die Press Feeder Name Role Phone Shannen Rubio APRN, CNM [...] on filedocumented in this encounter Care Teams Hot Die Press Feeder Relationship Specialty Start Date End Date Shannen Rubio APRN CNM [facility] [address] [place] [address] PCP - General head baggage porter 11/27/22 documented as of this encounter
--- OUTSIDE RECORDS SUMMARY | 2023-03-19 09:26 | XMS_ITS | Encounter Summary ---
Author Name Unknown Organization [place] Address [address] [place] [address] Care Team Providers Care Instrument Worker Name Role Phone Shannen Frausto APRN, CNM Primary Care Provider Reason for Referral * Diagnostic Imaging Ultrasound (Routine) - Pending Review Specialty Diagnoses / Procedures Referred By Contac t Referred To Contact Radiology. Diagnoses related condition, antepartum Procedures [facility] US Comprehensive Single Shannen Frausto APRN CNM [facility] [address] [place] [address] Referral ID Status Reason Start Date Expiration Date V isits Requested Visits Authorized Pending Review 11/27/2022 11/27/2023 1 1 * Consultation (Routine: Next available opening) - Pending Review Specialty Diagnoses / Procedures Referred By Contac t Referred To Contact Diagnoses related condition, antepartum Shannen Frausto APRN CNM [facility] [address] [place] [address] Rh Maternal Med [address] [facility] [address] [place] [address] Referral ID Status Reason Start Date Expiration Date V isits Requested Visits Authorized [id number] Pending Review 11/27/2022 11/27/2023 1 1 Question Answer Preferred Location: [facility] [place] 03/30/2023 Ultrasound Comprehensive US (>than 18 weeks GA) US PROC NONE MFM Issue Abnormal Ultrasound Findings (enter details in Comments) - abnormal US findings, AMA GARDENIAM MD Consultation (unrelated to Ultrasound findings): No Inflammatory Bowel Disease Clinic: Joint MFM and GI Consultation: No Chronic Kidney Disease: Joint MFM and Nephrology Consultation No Genetic Counseling Consultation: Yes fax Shannen Manzano [facility], Comments There is no height or weight [...] (Latest Contact Info) Description 11/27/2022 Transcribe Orders [facility] [place] [address] [facility] [address] [place] [address] Shannen Frausto APRN CNM [facility] [address] [place] [address] related condition, antepartum (Primary Dx) Social History [...] documented as of this encounter Results * [facility] US Comprehensive Single (11/30/2022 12:41 PM [...] TOM Study Date: 11/30/2022 11:51am Pat. NO: [id number] Referring ??: SHANNEN FRAUSTO Site: [facility] Customer Complaint Service Supervisor: Floridalma Arthur RDMS : 1985 Age: 37 [...] 1 lb 0 ?oz EFW by ?Hadlock ([id number]) Head / Face / Neck Biometry: Ship Construction Teacher ? 5.6 ? mm CM ?3.4 ? [...] cava. Inferior vena cava. 3-vessel ? view. 8-sazcqt-hbnssfr view. Cardiac position. Cardiac size. Cardiac rhythm. [...] medical record, and communicating with other health acute care certified nursing assistant and/or care coordination. Procedure Note Yordy Layne MD - 11/30/2022 Comprehensive ----- Pat. Name:Tim TOM Date:11/30/2022 11:51am Pat. NO: [id number] MD:SHANNEN FRAUSTO [facility]Floridalma Arthur RDMS :1985Age:37 ----- INDICATION ----- Advanced [...] 1 lb 0 oz EFW by Hadlock ([id number]) Head / Face / Neck Biometry: Ship Construction Teacher 5.6 mm CM 3.4 mm Nasal bone [...] Superior venacava. Inferior vena cava. 3-vessel view. 2-fjfiyx-bgzikii view.Cardiac position. Cardiac size. Cardiac rhythm. Right [...] been scheduled for follow up here with [facility] at 30 weeks. We willdetermine next steps [...] electronic medical record, andcommunicating with other health acute care certified nursing assistant and/or carecoordination. IMPRESSION ----- 1. Hong intrauterine [...] and closed. Shannen Frausto APRN, CNM [facility]Ju[facility] US ELOY CHARLES documented in this encounter Visit Diagnoses Diagnosis related condition, antepartum- Primary related condition, antepartum documented in this encounter Care Teams Instrument Worker Relationship Specialty Start Date End Date Shannen Frausto APRN CNM [facility] [address] [place] [address] PCP - General lithopone charger 11/27/22 documented as of this encounter
--- OUTSIDE RECORDS SUMMARY | 2023-03-19 09:26 | XMS_ITS | Encounter Summary ---
Author Name Unknown Organization [place] Address [address] [place] [address] Care Team Providers Care Remote Sensing Technologist Name Role Phone Shannen Rubio APRN, CNM [...] on filedocumented in this encounter Care Teams Remote Sensing Technologist Relationship Specialty Start Date End Date Shannen Rubio APRN CNM [facility] [address] [place] [address] PCP - General budget examiner 11/27/22 documented as of this encounter
--- OUTSIDE RECORDS SUMMARY | 2023-03-19 09:26 | XMS_ITS | Encounter Summary ---
Author Name Unknown Organization [place] Address [address] [place] [address] Care Team Providers Care Steward/Stewardess Smoke Room Name Role Phone Shannen Frausto APRN [facility] Primary Care Provider Reason for Referral * Diagnostic Imaging Ultrasound (Routine) - Pending Review Specialty Diagnoses / Procedures Referred By Conttaj t Referred To Contact Radiology. Diagnoses related condition, antepartum Procedures [facility] US Comprehensive Single F/U Yordy Layne MD [address] [place] [address] Referral ID Status Reason Start Date Expiration Date V isits Requested Visits Authorized [id number] Pending Review 11/30/2022 11/30/2023 1 1 Reason for Visit * Reason Comments Ultrasound L2- cystic structure anterior to sacral spine Encounter Details Date Type Department Care Team (Late st Contact Info) Description 11/30/2022 12:15 PM CDT Office Visit [facility] [address] [phone] Shannen Frausto APRN [facility] [address] [place] [address] Yordy Layne MD [address] [place] [address] abnormality affecting management of mother, [...] medical record, and communicating with other health home health aide caregiver and/or care coordination. Yordy Layne MD Maternal Medicine documented in this encounter Nursing Notes * Shayy Reese, RN - 11/30/2022 12:15 PM CDT Patient presents to [facility] for comprehensive ultrasound due to cystic structure seen near sacralspine on outside US. Reports positive movement, no pain, no contractions, leaking of fluid, or bleeding. SBAR given to [facility] MD, see their note in Epic. documented in this encounter Plan of Treatment Not on file documented as of this encounter Results * [facility] US Comprehensive Single F/U (01/25/2023 10:44 AM HABITAT BIOLOGIST) Anatomical Region Laterality Modality Ultrasound 01/25/2023 10:0 5 AM HABITAT BIOLOGIST Impressions 01/25/2023 4:20 PM HABITAT BIOLOGIST IMPRESSION ----- 1. Hong intrauterine at 29w [...] volume appeared normal. Narrative 01/25/2023 4:20 PM HABITAT BIOLOGIST ?Comp Follow Up ----- Pat. Name: LETTY TOM ? Study Date: ??01/25/2023 10:05am Pat. NO: ??[id number] ?Referring ??MD: SHANNEN FRAUSTO Site: ??[facility] ? Communications Project Manager: Franki Jackson RDMS : ??1985 ?Age: ?? [...] 3 lb 5 ?oz EFW by ?Hadlock ([id number]) Head / Face / Neck Biometry: Rehabilitation Services Director ? 2.7 ? mm CM ?7.1 ? mm ANATOMY ----- The following structures appear normal: Head / Neck ? Cranium. Head size. Head shape. Lateral ventricles. Midline falx. Cavum septi pellucidi. Cerebellum. Cisterna magna. Thalami. Face ? Lips. Profile. Nose. Heart / Thorax ?4-chamber view. RVOT view. LVOT view. 0-tpioap-euikpel view. ? Diaphragm. Abdomen ? Stomach. Kidneys. [...] TOM Study Date: 01/25/2023 10:05am Pat. NO: [id number] Referring MD: SHANNEN FRAUSTO Site: [facility] Project Manager: Franki Jackson RDMS : 1985 Age: 37 [...] 3 lb 5 oz EFW by Hadlock ([id number]) Head / Face / Neck Biometry: Rehabilitation Services Director 2.7 mm CM 7.1 mm ANATOMY ----- The following structures appear normal: Head / Neck Cranium. Head size. Head shape.Lateral ventricles. Midline falx. Cavum septi pellucidi. Cerebellum.Cisterna magna. Thalami. Face Lips. Profile. Nose. Heart / Thorax 4-chamber view. RVOT view. LVOT view.3-bpjctj-tnnlzgk view. Diaphragm. Abdomen Stomach. Kidneys. Bladder. The [...] fluid volume appeared normal. Yordy Layne MD [facility] US ORDERAB LES documented in this encounter Visit Diagnoses Diagnosis abnormality affecting management of mother, single or unspecified fetus- Primary abnormality affecting management of mother, single or unspecified fetus documented in this encounter Care Teams Steward/Stewardess Smoke Room Relationship Specialty Start Date End Date Shannen Frausto APRN CNM [facility] [address] [place] [address] PCP - General acting teacher 11/27/22 documented as of this encounter
--- OUTSIDE RECORDS SUMMARY | 2023-03-19 09:26 | XMS_ITS | Encounter Summary ---
Author Name Unknown Organization [place] Address [address] [place] [address] Care Team Providers Care Senior Packaging Engineer Name Role Phone Shannen Frausto APRN, CNM Primary Care Provider Reason for Referral * Diagnostic Imaging Ultrasound (Routine) - Pending Review Specialty Diagnoses / Procedures Referred By Amber sears Referred To Contact Radiology. Diagnoses related condition, antepartum Procedures [facility] US Comprehensive Single Shannen Frausto APRN CNM [address] [address] Referral ID Status Reason Start Date Expiration Date V isits Requested Visits Authorized [id number] Pending Review 11/27/2022 11/27/2023 1 1 Reason for Visit * Diagnostic Imaging Ultrasound (Routine) - Pending Review Specialty Diagnoses / Procedures Referred By Amber sears Referred To Contact Radiology. Diagnoses related condition, antepartum Procedures [facility] US Comprehensive [facility] Shannen Frausto APRN [facility] [address] [place] [address] Referral ID Status Reason Start Date Expiration Date V isits Requested Visits Authorized Pending Review 11/27/2022 11/27/2023 1 1 Encounter Details Date Type Department Care Team (Latest Contact Info) Description 11/30/2022 11:35 AM CDT - 11/30/2022 11:59 PM CDT Hospital Encounter [facility] Maternal Medicine Center [address] [phone] Shannen Frausto APRN [facility] [address] [place] [address] Yordy Layne MD [address] [place], [place] [id number] related condition, antepartum Discharge Disposition: Home or [...] Procedure Name Priority Date/Time Associated Diagnosis Comments [facility] US COMPREHENSIVE SINGLE Routine 11/30/2022 12:41 PM CDT related condition, antepartum documented in this encounter Results * [facility] US Comprehensive Single (11/30/2022 12:41 PM CDT) [...] PM CDT Comprehensive ----- Pat. Name: NERY TOM Study Date: 11/30/2022 11:51am Pat. NO: [id number] Referring ??MD: SHANNEN FRAUSTO Site: [facility] Buttonhole Marker: Floridalma Arthur RDMS : 1985 Age: 37 [...] ? 1 lb 0 ?oz EFW by ?[facility] ([id number]) Head / Face / Neck Biometry: Line Pilot ? 5.6 ? mm CM ?3.4 ? [...] cava. Inferior vena cava. 3-vessel ? view. 2-dkadgx-aaskeze view. Cardiac position. Cardiac size. Cardiac rhythm. [...] been scheduled for follow up here with [facility] at 30 weeks. We will determine next [...] medical record, and communicating with other health primary care md and/or care coordination. Procedure Note Yordy Layne MD - 11/30/2022 Comprehensive ----- Pat. Name:Tim TOM Date:11/30/2022 11:51am Pat. NO: [id number] MD:SHANNEN FRAUSTO [facility]Floridalma Arthur RDMS :1985Age:37 ----- INDICATION [...] 1 lb 0 oz EFW by Santana ([id number]) Head / Face / Neck Biometry: Line Pilot 5.6 mm CM 3.4 mm Nasal bone [...] Superior venacava. Inferior vena cava. 3-vessel view. 0-btnkzv-zjypqiw view.Cardiac position. Cardiac size. Cardiac rhythm. Right [...] electronic medical record, andcommunicating with other health primary care md and/or carecoordination. IMPRESSION ----- 1. Hong intrauterine [...] long and closed. Shannen Frausto APRN, CNM [facility] ELOY CHAR[facility] documented in this encounter Visit Diagnoses Diagnosis related condition, antepartum documented in this encounter Care Teams Senior Packaging Engineer Relationship Specialty Start Date End Date Shannen Frausto APRN CNM [facility] [address] [place] [address] PCP - General regulatory technician 11/27/22 documented as of this encounter
--- OUTSIDE RECORDS SUMMARY | 2023-03-19 09:26 | XMS_ITS | Clinical Summary ---
Author Name Unknown Organization [facility] Address [address] [place] [address] Care Team Providers Care Belt Back Operator Name Role Phone RamiroShannen tony TYLOR MASSEY Primary Care Provider Arlyn Brown MD Unavailable [phone] Encounters Date Type Department Care Team Description 01/25/2023 10:45 AM SUPERVISOR CIGAR MAKING HAND Office Visit [facility] Maternal Medicine [facility] [address] [place] [phone] Yordy Layne MD Sabol, Bethany, MD abnormality affecting management of mother, single or unspecified fetus (Primary Dx) 01/25/2023 10:07 AM SUPERVISOR CIGAR MAKING HAND - 01/25/2023 11:59 PM SUPERVISOR CIGAR MAKING HAND Hospital Encounter [facility] Maternal Medicine [facility] [address] [place] [phone] Yordy Layne MD Sabol, Bethany, MD abnormality [...] Procedure Name Priority Date/Time Associated Diagnosis Comments [facility] US COMPREHENSIVE SINGLE F/U Routine 01/25/2023 10:44 AM SUPERVISOR CIGAR MAKING HAND abnormality affecting management of mother, single or unspecified fetus from Last 3 Months Results * [facility] US Comprehensive Single F/U (01/25/2023 10:44 AM SUPERVISOR CIGAR MAKING HAND) Anatomical Region Laterality Modality Ultrasound 01/25/2023 10:0 5 AM SUPERVISOR CIGAR MAKING HAND Impressions 01/25/2023 4:20 PM SUPERVISOR CIGAR MAKING HAND IMPRESSION ----- 1. Hong intrauterine at 29w [...] volume appeared normal. Narrative 01/25/2023 4:20 PM SUPERVISOR CIGAR MAKING HAND ?Comp Follow Up ----- Pat. Name: LETTY TOM ? Study Date: ??01/25/2023 10:05am Pat. NO: ??[id number] ?Referring ??MD: SHANNEN FRAUSTO Site: ??[facility] ? Power Tool Repairer: Franki Jackson RDMS : ??1985 ?Age: ?? [...] 3 lb 5 ?oz EFW by ?Santana ([id number]-CH-[id number]-FL) Head / Face / Neck Biometry: Family Educator ? 2.7 ? mm CM ?7.1 ? mm ANATOMY ----- The following structures appear normal: Head / Neck ? Cranium. Head size. Head shape. Lateral ventricles. Midline falx. Cavum septi pellucidi. Cerebellum. Cisterna magna. Thalami. Face ? Lips. Profile. Nose. Heart / Thorax ?4-chamber view. RVOT view. LVOT view. 6-ptjxfo-axdgoud view. ? Diaphragm. Abdomen ? Stomach. Kidneys. [...] TOM Study Date: 01/25/2023 10:05am Pat. NO: [id number] Referring MD: SHANNEN FRAUSTO Site: [facility] Power Tool Repairer: Franki Jackson RDMS : 1985 Age: 37 [...] 3 lb 5 oz EFW by Hadlock ([id number]) Head / Face / Neck Biometry: Family Educator 2.7 mm CM 7.1 mm ANATOMY ----- The following structures appear normal: Head / Neck Cranium. Head size. Head shape.Lateral ventricles. Midline falx. Cavum septi pellucidi. Cerebellum.Cisterna magna. Thalami. Face Lips. Profile. Nose. Heart / Thorax 4-chamber view. RVOT view. LVOT view.7-xkpesv-vdjaiar view. Diaphragm. Abdomen Stomach. Kidneys. Bladder. The [...] volume appeared normal. Yordy Layne MD [facility] ORDERAB LES from Last 3 Months Care Teams Belt Back Operator Relationship Specialty Start Date End Date Shannen Frausto APRN CNM [facility] [address] [place] [address] PCP - General internal controls manager 11/27/22 Arlyn Brown MD [address] [address] Assigned OBGYN Provider 01/30/23
--- OUTSIDE RECORDS SUMMARY | 2023-03-19 09:26 | XMS_ITS | Encounter Summary ---
Author Name Unknown Organization [place] Address [address] [place] [address] Care Team Providers Care Business Excellence Leader Name Role Phone Shannen Rubio APRN, CNM Primary Care Provider Reason for Visit * Reason Comments Ultrasound L2- abnormal US find ings, AMA (cystic structure adjacent to sacral spine) Encounter Details Date Type Department Care Team (Late st Contact Info) Description 11/30/2022 PRE VISIT [facility] Maternal Medicine Center [address] [phone] Shayy Reese, RN Ultrasound (L2- abnormal US [...] on filedocumented in this encounter Care Teams Business Excellence Leader Relationship Specialty Start Date End Date Shannen Rubio APRN CNM [facility] [address] [place] [address] PCP - General voice systems engineer 11/27/22 documented as of this encounter
--- OUTSIDE RECORDS SUMMARY | 2023-03-19 09:26 | XMS_ITS | Encounter Summary ---
Author Name Unknown Organization [facility] Address [address] [place] [address] Care Team Providers Care Citizenship Teacher Name Role Phone Shannen Rubio APRN, CNM [...] on filedocumented in this encounter Care Teams Citizenship Teacher Relationship Specialty Start Date End Date Shannen Rubio APRN CNM [facility] [address] [place] [address] PCP - General waste removalist 11/27/22 documented as of this encounter
--- OUTSIDE RECORDS SUMMARY | 2023-03-19 09:26 | XMS_ITS | Encounter Summary ---
Author Name Unknown Organization [facility] Address [address] [place] [address]. [place] [address] Care Team Providers Care Staff Reporter Name Role Phone Shannen Rubio APRN, CNM Primary Care Provider Encounter Details Date Type Department Care Team (Latest Contact Info) Description 11/27/2022 Medical Correspondence [facility] [place] [phone] Outside, Provider PERINATOLOGY REFERRAL [facility] Social History Tobacco Use Types Packs/Day Years [...] on filedocumented in this encounter Care Teams Staff Reporter Relationship Specialty Start Date End Date Shannen Rubio APRN CNM [facility] [address] [place] [address] PCP - General ceramic restorer 11/27/22 documented as of this encounter
--- OUTSIDE RECORDS SUMMARY | 2023-03-19 09:26 | XMS_ITS | Encounter Summary ---
Author Name Unknown Organization [place] Address [address] [place] [address] Care Team Providers Care Him Coder Name Role Phone Shannen Frausto TYLOR CN Primary Care Provider Reason for Referral * Diagnostic Imaging Ultrasound (Routine) - Pending Review Specialty Diagnoses / Procedures Referred By Contac t Referred To Contact Radiology. Diagnoses related condition, antepartum Procedures [facility] US Comprehensive Single F/U Yordy Layne MD [address] [facility] Frequent Browser [address] [address] Referral ID Status Reason Start Date Expiration Date V isits Requested Visits Authorized [id number] Pending Review 11/30/2022 11/30/2023 1 1 Y PACKER Reason for Visit * Diagnostic Imaging Ultrasound (Routine) - Pending Review Specialty Diagnoses / Procedures Referred By Contac t Referred To Contact Radiology. Diagnoses related condition, antepartum Procedures [facility] US Comprehensive Single F/U Yordy Layne MD [address] [facility] [address] [place] [address] Referral ID Status Reason Start Date Expiration Date V isits Requested Visits Authorized [id number] Pending Review 11/30/2022 11/30/2023 1 1 Encounter Details Date Type Department Care Team (Latest Contact Info) Description 01/25/2023 10:07 AM COOKY PACKER - 01/25/2023 11:59 PM COOKY PACKER Hospital Encounter [facility] Maternal Medicine Center [place] [address] [place] [address] Yordy Layne MD [address] [place] [address] Arlyn Brown MD [address] [place] [address] abnormality affecting management of mother, [...] Procedure Name Priority Date/Time Associated Diagnosis Comments [facility] US COMPREHENSIVE SINGLE F/U Routine 01/25/2023 10:44 AM COOKY PACKER abnormality affecting management of mother, single or unspecified fetus documented in this encounter Results * [facility] US Comprehensive Single F/U (01/25/2023 10:44 AM COOKY PACKER) Anatomical Region Laterality Modality Ultrasound 01/25/2023 10:0 5 AM COOKY PACKER Impressions 01/25/2023 4:20 PM COOKY PACKER IMPRESSION ----- 1. Hong intrauterine at 29w [...] volume appeared normal. Narrative 01/25/2023 4:20 PM COOKY PACKER ?Comp Follow Up ----- Pat. Name: LETTY TOM ? Study Date: ??01/25/2023 10:05am Pat. NO: ??[id number] ?Referring ??MD: SHANNEN FRAUSTO Site: ??[facility] ? Ocular Care Aide: Franki Jackson RDMS : ??1985 ?Age: ?? [...] 3 lb 5 ?oz EFW by ?Hadlock ([id number]) Head / Face / Neck Biometry: Tool Or Die Drawing Checker ? 2.7 ? mm CM ?7.1 ? mm ANATOMY ----- The following structures appear normal: Head / Neck ? Cranium. Head size. Head shape. Lateral ventricles. Midline falx. Cavum septi pellucidi. Cerebellum. Cisterna magna. Thalami. Face ? Lips. Profile. Nose. Heart / Thorax ?4-chamber view. RVOT view. LVOT view. 4-iwugdw-kevipts view. ? Diaphragm. Abdomen ? Stomach. Kidneys. [...] TOM Study Date: 01/25/2023 10:05am Pat. NO: [id number] Referring MD: SHANNEN FRAUSTO Site: [facility] Ocular Care Aide: Franki Jackson RDMS : 1985 Age: 37 [...] 3 lb 5 oz EFW by Hadlock ([id number]) Head / Face / Neck Biometry: Tool Or Die Drawing Checker 2.7 mm CM 7.1 mm ANATOMY ----- The following structures appear normal: Head / Neck Cranium. Head size. Head shape.Lateral ventricles. Midline falx. Cavum septi pellucidi. Cerebellum.Cisterna magna. Thalami. Face Lips. Profile. Nose. Heart / Thorax 4-chamber view. RVOT view. LVOT view.2-cwzwia-yiwqlml view. Diaphragm. Abdomen Stomach. Kidneys. Bladder. The [...] fluid volume appeared normal. Yordy Layne MD [facility] US ORDERAB LES documented in this encounter Visit Diagnoses Diagnosis abnormality affecting management of mother, single or unspecified fetus documented in this encounter Care Teams Him Coder Relationship Specialty Start Date End Date Shannen Frausto APRN [facility] [address] [place] [address] PCP - General in flight refueling manager 11/27/22 documented as of this encounter
--- OUTSIDE RECORDS SUMMARY | 2023-03-19 09:26 | XMS_ITS | Referral Summary ---
Author Name Unknown Organization [place] Address [address] [place] [address] Care Team Providers Care Site Promotion Agent Name Role Phone RamiroShannen tony TYLOR MASSEY Primary Care Provider Arlyn Brown MD Unavailable [phone] Encounters Date Type Department Care Team Description 01/25/2023 Travel 01/25/2023 10:45 AM STRATEGIC BUYER Office Visit [facility] Maternal Medicine [facility] [address] [place] [phone] Yordy Layne MD Sabol, Bethany, MD abnormality affecting management of mother, single or unspecified fetus (Primary Dx) 01/25/2023 10:07 AM STRATEGIC BUYER - 01/25/2023 11:59 PM STRATEGIC BUYER Hospital Encounter [facility] Maternal Medicine [facility] [address] [place] [phone] Yordy Layne MD Sabol, Bethany, MD abnormality [...] Procedure Name Priority Date/Time Associated Diagnosis Comments [facility] COMPREHENSIVE SINGLE F/U Routine 01/25/2023 10:44 AM STRATEGIC BUYER abnormality affecting management of mother, single or unspecified fetus from Last 3 Months Results * [facility] US Comprehensive Single F/U (01/25/2023 10:44 AM STRATEGIC BUYER) Anatomical Region Laterality Modality Ultrasound 01/25/2023 10:0 5 AM STRATEGIC BUYER Impressions 01/25/2023 4:20 PM STRATEGIC BUYER IMPRESSION ----- 1. Hong intrauterine at 29w [...] volume appeared normal. Narrative 01/25/2023 4:20 PM STRATEGIC BUYER ?Comp Follow Up ----- Pat. Name: LETTY TOM ? Study Date: ??01/25/2023 10:05am Pat. NO: ??[id number] ?Referring ??MD: SHANNEN FRAUSTO Site: [facility] ? Center Specialists: Franki Jackson RDMS : ??1985 ?Age: ?? [...] 3 lb 5 ?oz EFW by ?Hadlock ([id number]) Head / Face / Neck Biometry: Mysql Dba ? 2.7 ? mm CM ?7.1 ? mm ANATOMY ----- The following structures appear normal: Head / Neck ? Cranium. Head size. Head shape. Lateral ventricles. Midline falx. Cavum septi pellucidi. Cerebellum. Cisterna magna. Thalami. Face ? Lips. Profile. Nose. Heart / Thorax ?4-chamber view. RVOT view. LVOT view. 7-jsxvzw-rlgmuuh view. ? Diaphragm. Abdomen ? Stomach. Kidneys. [...] TOM Study Date: 01/25/2023 10:05am Pat. NO: [id number] Referring MD: SHANNEN FRAUSTO Site: [facility] Center Specialists: Franki Jackson RDMS : 1985 Age: 37 [...] 3 lb 5 oz EFW by Hadlock ([id number]-FL) Head / Face / Neck Biometry: Mysql Dba 2.7 mm CM 7.1 mm ANATOMY ----- The following structures appear normal: Head / Neck Cranium. Head size. Head shape.Lateral ventricles. Midline falx. Cavum septi pellucidi. Cerebellum.Cisterna magna. Thalami. Face Lips. Profile. Nose. Heart / Thorax 4-chamber view. RVOT view. LVOT view.1-ezjqrf-lszyruw view. Diaphragm. Abdomen Stomach. Kidneys. Bladder. The [...] fluid volume appeared normal. Yordy Layne MD [facility] ORDERAB LES from Last 3 Months Care Teams Site Promotion Agent Relationship Specialty Start Date End Date Shannen Frausto APRN CNM [facility] [address] [place] [address] PCP - General ice cream vault worker 11/27/22 Arlyn Brown MD [address] [id number] Assigned OBGYN Provider 01/30/23
--- OUTSIDE RECORDS SUMMARY | 2023-03-19 09:26 | XMS_ITS | Encounter Summary ---
Author Name Unknown Organization [place] Address [address] [place] [address] Care Team Providers Care Media Monitor Name Role Phone Shannen Rubio APRN [facility] Primary Care Provider Reason for Visit * Reason Comments Ultrasound RL2-circular structu re noted posterior to the bladder and anterior to the sacrum which is circular in appearance with internal homogeneous echogenicity Encounter Details Date Type Department Care Team (Late st Contact Info) Description 01/25/2023 10:45 AM GREEN BUILDING ENERGY ENGINEER Office Visit [facility] Maternal Medicine Center [place] [address] [place] [address] Yordy Layne MD [address] [place] [address] Arlyn Brown MD [address] [place] [address] abnormality affecting management of mother, [...] in the Maternal- Medicine Center at the [facility] today. For a detailed report of the ultrasound examination, please see the ultrasound report which can be found under the imaging tab. If you have questions regarding today's evaluation or if we can be of further service, please contact the Maternal- Medicine Center. Arlyn Brown MD Cardiothoracic Surgeon, ASSISTANT COOK Maternal- Medicine [phone] (Pager) N BUILDING ENERGY ENGINEER documented in this encounter Nursing Notes * Shruthi Parada RN - 01/25/2023 10:45 AM CST Patient reports good movement, denies contractions, leaking of fluid, or bleeding. N BUILDING ENERGY ENGINEER documented in this encounter Plan of Treatment Not on file documented as of this encounter Visit Diagnoses Diagnosis abnormality affecting management of mother, single or unspecified fetus- Primary documented in this encounter Care Teams Media Monitor Relationship Specialty Start Date End Date Shannen Rubio APRN CNM [facility] [address] [place] [address] PCP - General cnmt 11/27/22 documented as of this encounter
== END 2023-03-19 09:23 | disposition home or self-care (01) ==
LOC: US 09:23
PROVIDERS: PCP Advanced Practice Midwife; Visit Provider Obstetrics & Gynecology
DX: O26.843 Uterine size-date discrepancy, third trimester (principal)
CPT/HCPCS: 76816

== ENCOUNTER 2023-03-26 21:50 | Outpatient (CLI) | payer OTHER, SELFPAY ==
[2023-03-26 22:13] VITALS: BP 133/75; PULSE 76
[2023-03-26] MEDS: MORPHINE 10 MG/ML inj IM (22:59)
[2023-03-26] MEDS: hydrOXYzine pamoate 25 MG CAPSULE 100 MG PO (23:00)
--- NOTE | 2023-03-26 23:04 | PC.OBNST ---
NST Note NST Note Start: 03/26/23 21:52 Freq: ONCE Status: Active Protocol: Document 03/26/23 21:52 MEMO (Rec: 03/26/23 23:04 MEMO [id number]) NST Note 4 Para (# of births) 1 EDC 04/06/23 Gestational Age In Weeks & Days 38 Weeks & 3 Days Patient Presented with Complaint(s) of Contractions/cramping Reactive Yes Appropriate for Gestational Age Yes FIORDALIZA Marcelo Date 03/26/23 Reactive Yes Appropriate for Gestational Age Yes FIORDALIZA Camejo Date 03/26/23 OB NST charge Yes Complete NST Note via Write Note Yes The provider's electronic signature indicates the NST is reactive/appropriate for gestational age. *Note to provider: If an addendum is required, open the patient's chart and click on the note under the Nurse/Allied Health tab.
== END 2023-03-26 23:03 | disposition home or self-care (01) ==
LOC: OB OUT 21:50 → OB 21:51
PROVIDERS: PCP Advanced Practice Midwife; Visit Provider Advanced Practice Midwife
DX: O47.1 False labor at or after 37 completed weeks of gestation (principal); Z3A.38 38 weeks gestation of pregnancy
CPT/HCPCS: 59025; 84112; G0463; A9270; J2270

== ENCOUNTER 2023-03-27 16:23 | Inpatient (IN) | payer OTHER, SELFPAY ==
[2023-03-27] VITALS (27 sets, daily range): BP systolic 97–130; BP diastolic 64–78; PULSE 57–84; RESP 15–18; TEMP 36.3–37.1; O2SAT 97–100; BMI 24.3
[2023-03-27 14:43] LABS: Basophils Percent Auto 0.1 % (0.0-3.0); Eosinophils Percent Auto 0.5 % (0.0-7.0); Hematocrit 35.3 % (33.0-51.0); Hemoglobin* 11.6 gm/dL (12.0-16.0); Immature Granulocytes Pct Auto 0.7 %; Lymphocytes Percent Auto 19.1 % (20-44); Mean Corpuscular HGB Conc 33 gm/dL (32-36); Mean Corpuscular Hemoglobin 30 pg (26-34); Mean Corpuscular Volume 91 fL (80-100); Monocytes Percent Auto 6.5 % (0.0-11.0); Neutrophils Percent Auto 73.1 % (42.0-72.0); Platelet Count* 229 K/uL (140-440); RDW Coefficient of Variation % 12.8 % (11.5-15.5); White Blood Count* 11.02 K/uL (4.50-11.00)
[2023-03-27 14:46] LABS: Slide Review Reflex No
[2023-03-27] MEDS: AZITHROMYCIN 500 MG in 0.9 % SODIUM CHLORIDE 250 ml 250 ML 255 MG IVPB (14:49)
[2023-03-27] MEDS: LACTATED RINGERS 1000 ML 1,000 ML 600 ML IV (14:52)
--- NOTE | 2023-03-27 15:18 | P.LDBA_ITS ---
Subjective History of Present Illness Date Seen: 03/27/23 Narrative: Patient is being admitted to Labor and Delivery for repeat section in the setting of spontaneous onset of labor. She is a 37 year old at 38 4/7 weeks gestation. Her full history and physical was dictated by Dane Rubio on 03/19/23. Please see this for details. She has been having intermittent contractions for the last 2 days, and has been evaluated and discharged multiple times. She has had doscumented cervical change from closed to 2 cm. Last ate at about noon. Specific Issues/Plans H&P done by Dane Rubio CNM on 03/19/2023 1. AMA >35 yo Level II US: offered but declines Offer genetic screening: [id number] WNL? 2. Previous section C/s 12/08/2021, total spacing from to date of conception is 7 months (per new policy 02/22, she could TOLAC) PROM >48 hours without labor, failed induction of labor per Dr. Franco procedure note Repeat planned Growth US 03/19/2022: 22.5 % 3. Hx of 2 previous miscarriages Previously did vaginal progesterone, declined this 4. Anxiety, taking Wellbutrin 300 mg since 09/14: PHQ 15, MARIA 13 Previously treated with Celexa (suboptimal results), Zoloft (uncertain of response) 09/18: Pt requested increase on Wellbutrin, rx for 300 mg 11/27: Mood is good, declined MARIA/PHQ. Refilled Wellbutrin We discussed use of SSRI instead of Wellbutrin for management of anxiety 5. Cystic structure adjacent to sacral spine of fetus Level II: 5 mm circular structure. Follow up with MFM scheduled for 30 weeks. Concern for anal atresia cannot be ruled out. MFM would recommend delivery at facility where surgical intervention could occur immediate post-delivery if concern present with 30 week scan 01/25/2023: Follow-up US by Rita WNL, structure not seen. Routine OB care recommended 6. 10 weeks in between visits, patient was busy with follow-up ultrasounds with the MFM. Declines urine drug screen 7. Covid positive at 34 weeks. No lingering symptoms. Flu and COVID shot: 02/05/2023 Tdap and RSV: 02/22 OB - Problem Based A/P Additional Plan (1) Spontaneous onset of labor: Status: Acute (2) H/O section: Status: Acute Delivery/Labor/Induction Plan Plan: Section (Informed consent obtained. O.R. staff and Peds notified.) OB Exam Physical Exam Vital signs: Temp Pulse Resp BP 97.9 F 84 16 130/77 03/27/23 13:23 03/27/23 13:18 03/27/23 13:23 03/27/23 13:18 Narrative: VITAL SIGNS: Noted above. GENERAL APPEARANCE: Alert cooperative white female in no acute distress. MOOD AND AFFECT: Normal. CV: Heart regular rate and rhythm. PULM: Lungs clear to auscultation bilaterally. ABDOMEN: Soft, gravid, nontender. Fundal height is consistent with dates. The fetus is in a vertex presentation by David's. EXTREMITIES: Without significant edema, nontender bilaterally. NEURO: Intact. Detailed Labor and Delivery Exam Patient Gravid: Yes Dilation (cm): 2 Effacement (%): 80 Contraction Frequency: 6-8 minutes Fetus (Single) Station: -2 Heart Rate Baseline: 140 Monitor Accelerations: Present Monitor Decelerations: None Fleet Mechanic Variability: Moderate (6-25)
--- NOTE | 2023-03-27 15:24 | PM.OBPRCCS ---
OB Delivery Proc Additional Procedures Tubal Ligation at the time of : No Procedure Date of procedure: 03/27/23 Pre-op diagnosis: 38 4/7 weeks gestation, spontaneous labor, h/o prior desiring repeat Post-op diagnosis: same Procedure Done: Global Will [facility] bill your pro fee for this procedure?: Yes Blood Loss Measurement Type: QBL (201 mL) Bakri Used: No Surgeon: Yazmin Pierre MD Anesthesia Type: TAP block Findings: Keloid scar. Minimal adhesions from prior section. Normal uterus, tubes, and ovaries. Live-born female infant, cephalic presentation, weight 2920 g or 6 lb 7 oz, Apgars eight nine at one and 5 minutes respectively. Procedure Name: Repeat low transverse section with scar revision Procedure Description: After obtaining informed consent, the patient was taken to the operating room where spinal anesthesia was obtained and found to be adequate. She was prepared and draped in the normal sterile fashion in the dorsal supine position with a leftward tilt. A Pfannenstiel skin incision was made with a scalpel in an elliptical fashion around the line of the patient's previous Pfannenstiel scar. The old scar was elevated with Allis clamps and excised sharply. The incision was carried down to the underlying layer of fascia with the Bovie. The fascia was incised in the midline and the incision extended laterally. The superior and inferior aspects of the fascial incision were grasped with Nathanael clamps, elevated and the underlying rectus muscles dissected off sharply and with electrocautery. The rectus muscles were then in the midline. The adhesions between the bladder and lower uterine segment were taken down sharply with Metzenbaum scissors. The Corona O retractor was then placed into the incision. The lower uterine segment was then incised in a transverse fashion with the scalpel. Upon entry into the uterus, clear amniotic fluid was noted. The uterine incision was extended laterally with blunt finger fractionation. The 's head was delivered atraumatically, followed by the remainder of the infant's body. The nose and mouth were suctioned with the bulb suction. The cord was doubly clamped and cut, and the infant was handed off the field to Dr. Bradley for evaluation. The placenta was delivered spontaneously with umbilical cord traction and fundal massage. The uterus was cleared of all clots and debris. The uterine incision was reapproximated in a running locking fashion with a 0 chromic suture. A 2nd layer of the same suture was used to imbricate in horizontal fashion. Clots were removed from the gutters with a sponge. All instruments and retractors were removed. The anterior peritoneum was reapproximated in a running fashion with a 3-0 Vicryl suture. The subfascial tissues were carefully inspected and hemostasis assured. The fascia was reapproximated in a running fashion with a looped 0 Maxon suture. The subcutaneous tissues were copiously irrigated. Hemostasis was assured. The subcutaneous fat layer was reapproximated with interrupted sutures of 3-0 plain gut. The skin was closed in a subcuticular fashion with 4-0 Vicryl. Surgical glue and dressing were applied. The patient tolerated the procedure well. Sponge, lap, needle, and instrument counts were reported as correct x2. The patient was taken to the recovery room, awake, and in stable condition. She did receive 500 mg of IV azithromycin 2 grams of IV Ancef preoperatively.
[2023-03-27] MEDS: CEFAZOLIN 2 GM in 0.9 % SODIUM CHLORIDE Mini-bag 100 ML IVPB (15:33)
--- NOTE | 2023-03-27 16:01 | SUR.OPER ---
Orders to discard placenta per .
[2023-03-27] MEDS: KETOROLAC 30 MG/ML inj 15 MG IVP (16:32)
--- NOTE | 2023-03-27 17:06 | P.NB_ITS ---
Nerve Block Nerve Block Time Seen by Provider: 16:45 Date Seen: 03/27/23 Type of block requested by surgeon for post-operative analgesia: TAP Side: bilateral Time out performed: Yes Verification of patient name: Yes Verification of date of : Yes Name of person performing procedure: PALLAVI Martinez Continuous monitoring Was continuous monitoring of O2 sat, B/P, personnel monitor, recorded every 15 minutes?: Yes Procedure Checklist: sterile prep, needles and gloves Ultrasound guided. Images saved: Yes Medications given in 5ml increments after negative aspiration: Marcaine (30 ml total) %: 0.25 mL: 15 Needle gauge: 20 and Exparel (10 ml total) mL: 5 Needle gauge: 20 Patient tolerated procedure well: Yes Block Charges Block Charge (with Pro Fee): TAP Bilateral Use of Ultrasound Machine for Block: Yes- US Guidance/pain block
--- NOTE | 2023-03-27 17:10 | W.ANESCHARGE ---
Anesthesia Charges Start Date/Time Anesthesia Start Date: 03/27/23 Anesthesia Start Time: 15:27 Stop Date/Time Anesthesia Stop Date: 03/27/23 Anesthesia Stop Time: 16:54 Summary Emergency: [employer]
[2023-03-27] MEDS: LACTATED RINGERS 1000 ML 1,000 ML 125 ML IV (19:28)
[2023-03-27] MEDS: KETOROLAC 15 MG/ML inj IVP (22:26)
[2023-03-28] VITALS (13 sets, daily range): BP systolic 107–121; BP diastolic 70–83; PULSE 66–83; RESP 15–188; TEMP 36.4–37.2; O2SAT 97–99
[2023-03-28] MEDS: KETOROLAC 15 MG/ML inj IVP ×4 (04:39→22:17)
[2023-03-28] MEDS: DOCUSATE SODIUM 100 MG CAPSULE PO (08:29)
[2023-03-28 10:08] LABS: Hemoglobin* 9.7 gm/dL (12.0-16.0)
--- NOTE | 2023-03-28 10:28 | PM.OBPNVD1 ---
OB - PN:Subj Subjective Date Seen: 03/28/23 Patient comments OB post-: no complaints [place] status: Narrative: The patient is a 37 year old G 4 now P 2021 that was admitted to the Center on 03/27/23 for early labor at 38 4/7 weeks gestation. She had an uncomplicated repeat delivery. She delivered a viable female infant. She is breast feeding. the patient has done well. Pain control has been adequate. Bhatia has been removed. Voiding without difficulty. OB - PN: Obj Exam Physical Exam: Vital signs: Temp Pulse Resp BP Pulse Ox O2 Del Method 97.6 F 71 16 107/70 99 Room Air 03/28/23 08:07 03/28/23 08:07 03/28/23 08:07 03/28/23 08:07 03/28/23 08:07 03/28/23 08:07 Constitutional: Constitutional: no acute distress Routine Neck Exam: Neck: Present normal inspection Routine Respiratory Exam: Respiratory: Present CTA bilaterally; Absent respiratory distress Routine Cardiovascular Exam: Cardiovascular: Present RRR; Absent murmur Routine Abdominal Exam: Abdominal: Present soft; Absent tenderness Fundus: Present firm Routine Extremities Exam: Extremities: Present normal inspection and pedal edema; Absent calf tenderness Routine Neurological Exam: Neurological: Present alert and oriented X3 Routine Psychiatric Exam: Psychiatric: Present normal affect Wound Management: Method: suture Examination: Present clean, dry and intact; Absent erythematous Comments: Pfannenstiel incision Urinary Catheter Management: Urethral: Cath placed during this visit: yes, but has since been removed by the nurse Reason for continuing: surgical procedure Insertion date: 03/27/23 Insertion time: 15:40 Removal date: 03/27/23 Removal time: 23:13 OB - PN: Obj Data Labs Labs: Laboratory Results - last 24 hr 03/27/23 03/28/23 14:33 06:10 WBC 11.02 H RBC 3.90 L Hgb 11.6 L 9.7 L Hct 35.3 MCV 91 MCH 30 MCHC 33 RDW Coeff of Anahi 12.8 Plt Count 229 Neut % (Auto) 73.1 H Lymph % (Auto) 19.1 L [place] % (Auto) 6.5 Eos % (Auto) 0.5 Baso % (Auto) 0.1 Neut # (Auto) 8.10 H Lymph # (Auto) 2.10 [place] # (Auto) 0.70 Eos # (Auto) 0.10 Baso # (Auto) 0.00 Abs Immat Gran (auto) 0.10 Imm/Tot Granulo (auto) 0.7 Blood Type O Positive Antibody Screen NEGATIVE OB - PN: A/P Delivery Assessment and Plan (1) Status post repeat low transverse section: Status: Acute Plan day: 1 Plan: routine care
[2023-03-28] MEDS: SODIUM CHLORIDE 0.9 % (FLUSH) 10 ML SYRINGE IVF (16:33)
[2023-03-28] MEDS: CYCLOBENZAPRINE HCL 10 MG TABLET PO (22:18)
[2023-03-29] MEDS: IBUPROFEN 600 MG TABLET PO (06:47)
--- NOTE | 2023-03-29 07:38 | PM.OBDSVD1 ---
DS: Providers Provider Time Seen by Provider: 07:39 Date Seen: 03/29/23 Date of admission: 03/27/23 16:23 Primary care physician: Shannen Rubio CNM Admitting Clinician: Yazmin Pierre MD Attending Physician on discharge: Yazmin Pierre MD Date of Discharge: 03/29/23 DS: Diagnosis Discharge Diagnosis (1) Status post repeat low transverse section: Status: Acute (2) Anxiety: Status: Acute (3) Lactating mother: Status: Acute (4) exam: Status: Acute Exam Narrative: Exam Narrative: VSS. ?Afebrile GENERAL APPEARANCE: ?normal affect, alert, no distress MOOD: ?appropriate HEENT: normocephalic, neck supple, full ROM CHEST: ?Symmetrical chest wall movement. ?Normal respiratory effort. ?Clear to auscultation HEART: ?regular rate and rhythm ABDOMEN: ?soft, non-tender. Uterine fundus is firm, 1 below Umbilicus, Midline and is appropriate for the stage of recovery. ?Bowel sounds present. EXTREMITIES: ?normal and no edema SKIN: warm, dry. ? ?Incision clean/dry/well approximated. ?No signs of infection noted. Const: Vital Signs, click to edit/add: Vital Signs - 24 hr 03/28/23 08:05 03/28/23 08:07 03/28/23 12:58 Temperature 97.6 F 98.9 F Pulse Rate [Pulse Oximeter] 71 83 Respiratory Rate 16 16 15 Blood Pressure [Ri ght Arm] 107/70 116/81 Pulse Oximetry 99 97 Oxygen Delivery Me thod Room Air Room Air 03/28/23 13:02 03/28/23 17:39 03/28/23 17:49 Temperature 98.6 F Pulse Rate [Pulse Oximeter] 73 Respiratory Rate 15 16 15 Blood Pressure [Ri ght Arm] 113/79 Pulse Oximetry 97 Oxygen Delivery Me thod Room Air 03/28/23 23:19 Temperature 98.1 F Pulse Rate [Pulse Oximeter] 73 Respiratory Rate 18 Blood Pressure [Ri ght Arm] 121/83 Pulse Oximetry 98 Oxygen Delivery Me thod Room Air OB - DS: Summary Hospital Course Hospital Course: Letty is a 37 y.o. G 4 P 2 who was admitted to [facility] for wendi labor, planned repeat . ?She had an uncomplicated . ? The patient feels well. ?The pain is mostly controlled with current medications. ?She does note shoulder pain, which has occurred in her 2 previous surgeries also. Thought to be referred gas pain. She has no new complaints. ?She is breast feeding and reports things are going well.? the patient has done well.? Vitals have been stable.? She has remained afebrile.? Has a good appetite, is tolerating a general diet. ?She is voiding without difficulty.? She is passing gas and has had a bowel movement.? She is ambulating and denies any dizziness.? Has Small amount of rubra lochia. She is considering partner vasectomy for prevention. Problems: none plan: Discharge home with baby. Follow up in 2 weeks and 6 weeks. , may follow up with if needed Acute anemia, continue iron supplementation for 6 weeks Shoulder pain -likely referred gas pain. Comfort measures reviewed, including mylicon, stool softeners to avoid constipation. Also reviewed comfort measures for muscle pain if musculoskeletal in nature. She did take a muscle relaxer last night, which did not help much and increased her anxiety. Anxiety -currently stable on Welbutrin dose -Aware of signs of when to call/be seen Peripartum Data delivery method: Repeat Section Procedures: Procedures Operation Date: 03/27/23 15:45 Actual Procedure Side Surgeon p Section Yazmin Pierre MD complications: none [place] Infant Gender: Female Discharge Plan: Home Status at Discharge Functional status at discharge: independent ambulation Overall status at discharge: patient is progressing back to baseline Time Spent with Patient Time attestation: Total time spent providing and/or coordinating discharge services: Time spent: Less than 30 minutes Discharge Plan Discharge Disposition: Home, Self-Care Date of Admission: 03/27/23 16:23 Attending Provider on Discharge: Billie Etienne Primary Care Provider: Shannen Rubio Condition: Stable Anticipated Discharge Date/Time: 03/29/23 13:00 Discharge Medications: New docusate sodium 100 mg Capsule 100 mg PO DAILY Qty: 30 0RF ibuprofen 600 mg Tablet 600 mg PO Q6H PRN (Reason: Pain) Qty: 30 0RF oxycodone 5 mg Tablet 5 - 10 mg PO Q6H PRN (Reason: Pain) Qty: 15 0RF Continued DHA 200 mg capsule 200 mg PO DAILY Unisom (doxylamine) 25 mg tablet 25 mg PO QHS PRN bupropion HCl 300 mg tablet extended release 24 hr 300 mg PO QAM Qty: 90 2RF Discharge Orders: Discharge Order (Routine); Ordered 03/29/23 Ordered By: Billie Etienne Patient Education: OB Over the Counter Medication Information, OB /Breast Feeding Additional Instructions: Follow up in 2 weeks and 6 weeks in the clinic. No driving until you can slam on the breaks in an emergency and twist both ways comfortably, and are no longer taking oxycodone. Activity Level: Activity as Tolerated Discharge Diet: Regular Follow Up Appointments: Shannen Rubio CNM [Primary Care Provider] - [facility]
[2023-03-29 08:52] VITALS: BP 120/79; PULSE 73; RESP 16; TEMP 36.7
[2023-03-29] MEDS: DOCUSATE SODIUM 100 MG CAPSULE PO (08:53)
[2023-03-29] MEDS: ACETAMINOPHEN 500 MG TABLET 1000 MG PO (08:53)
== END 2023-03-29 11:54 | disposition home or self-care (01) | DRG 787 ==
LOC: OB OUT 16:24 → OB 16:24
PROVIDERS: Admitting Provider Obstetrics & Gynecology; PCP Advanced Practice Midwife; Visit Provider Obstetrics & Gynecology
PROC: 10D00Z1 Extraction of Products of Conception, Low, Open Approach (ICD-10-PCS; CPT 59514; principal; 2023-03-27 15:30)
DX: O34.211 Maternal care for low transverse scar from previous cesarean delivery (principal); D62 Acute posthemorrhagic anemia; O75.82 Onset (spontaneous) of labor after 37 completed weeks of gestation but before 39 completed weeks gestation, with delivery by (planned) cesarean section; O90.81 Anemia of the puerperium; G89.18 Other acute postprocedural pain; Z3A.38 38 weeks gestation of pregnancy; O99.344 Other mental disorders complicating childbirth; F41.9 Anxiety disorder, unspecified; Z37.0 Single live birth
CPT/HCPCS: 01961; 36415; 64488; 76942; 85018; 85025; 86850; 86900; 86901; 94761; 99140; A9270; C9290; J0456; J0665; J0690; J1885; J2274; J2371; J2590; J7050; J7120

== ENCOUNTER 2023-12-07 13:58 | Outpatient (CLI) | payer OTHER, SELFPAY ==
--- OUTSIDE RECORDS SUMMARY | 2023-12-07 14:02 | XMS_ITS | Referral Summary ---
Author Organization [place] Address [address] [place] [id number] Care Team Providers Care Outside Barrel Lathe Operator Name Role Phone Shannen Rubio APRN, CNM Primary Care Provider Arlyn Brown MD Unavailable [phone] Social History Tobacco Use Types Packs/Day Years [...] Procedure Name Priority Date/Time Associated Diagnosis Comments ABSTRACT HIV Routine 08/24/2022 10:30 AM CDT HEPATITIS C (HIM EXTERNAL RESULT) Routine 08/24/2022 10:30 AM CDT from Last 3 Months or Most Recently Relevant to Health Maintenance Results * ABSTRACT HIV (08/24/2022 10:30 AM CDT) HIV 1&2 EXT Non-Reacti ve [facility] Comment:see scan Blood 08/24/2022 10:3 0 AM CDT Narrative [facility] - 08/24/2022 10:30 AM CDT [facility] Lab Result Provider Outside LAB - HIM EXTERNAL R ESULT [facility] [address] [place] [address], [facility] [phone] * Hepatitis C (HIM External Result) (08/24/2022 10:30 AM CDT) Hep C HIM See Scanned Document [facility] 08/24/2022 10:3 0 AM CDT Narrative [facility] - 08/24/2022 10:30 AM CDT [facility] Lab Result Provider Outside LAB - HIM EXTERNAL R ESULT [facility] [address] [place] [address], [facility] [phone] from Last 3 Months or Most Recently Relevant to Health Maintenance Care Teams Outside Barrel Lathe Operator Relationship Specialty Start Date End Date Shannen Rubio APRN CNM [facility] [address] [place] [address] PCP - General polymerization oven operator 11/27/22 Arlyn Brown MD [address] [facility] [address] [facility] [address] [place] [address] Assigned OBGYN Provider 01/30/23
--- OUTSIDE RECORDS SUMMARY | 2023-12-07 14:02 | XMS_ITS | Clinical Summary ---
Author Organization [employer] [facility] Address [place], [place] [address] Care Team Providers Care Lay Out Worker Name Role Phone [facility] Pro vider Allergies No known active allergies Medications Medication Sig Dispensed Refills Start Date End Date Status azithromycin (ZITHROMAX) 250 mg tabletIndications:Bro nchitis Take 500 mg (2 tabs) by mouth on day 1, then 250 mg (1 tab) daily for days 2-5. 6 Tablet 03/10/2021 Active buPROPion (WELLBUTRIN XL) 150 mg Extended-Release tabletIndications:Anx iety TAKE ONE TABLET BY MOUTH EVERY DAY 60 Tablet 12/22/2021 Active Active Problems Problem Noted Date Diagnosed Date Anxiety 07/11/2020 Sleep disorder 07/11/2020 Acute phlegmonous appendicitis 10/19/2017 Resolved Problems Problem Noted Date Diagnosed Date Resolved Date Abdominal pain 09/14/2017 03/10/2021 Immunizations Name Administration Dates Next Due COVID-19 vaccine (Fastnote NTYODIL 30mcg/0.3mL) PF, MDV 04/18/2020,03/28/2020 DT (Age < [...] Comments Blood Pressure 102/70 03/10/2021 9:04 AM VINYL FLOORING INSTALLER Pulse 72 03/10/2021 9:04 AM VINYL FLOORING INSTALLER Temperature 36.5 ??C (97.7 ??F) 03/10/2021 9:04 AM CS T Respiratory Rate 16 08/28/2019 12:0 7 PM CDT Oxygen Saturation 98% 03/10/2021 9:04 AM VINYL FLOORING INSTALLER room air Inhaled Oxygen Concentration - - Weight 57.1 kg (125 lb 12.8 oz) 03/10/2021 9:04 AM VINYL FLOORING INSTALLER Height 156.2 cm (5' 1.5) 03/10/2021 9:04 AM VINYL FLOORING INSTALLER Body Mass Index 23.38 03/10/2021 9:04 AM VINYL FLOORING INSTALLER Plan of Treatment Health Maintenance Due Date Last Done Comments HIV for age 15-65 2000 Hepatitis C screening for age 18-79 09/30/2003 Depression screening for age 12+ 02/13/2022 02/13/2021, 07/11/2020, 01/19/2020, Additional history exists Pap test for age 21-65 03/09/2022 03/09/2019, 2003 BMI (ht and wt on same day) for age 18+ 03/10/2022 03/10/2021, 08/28/2019, 03/09/2019, Additional history exists COVID-19 vaccine series (2023- season) 2023 04/18/2020, 03/28/2020 Influenza for age 9-49 11/07/2023 03/12/2017 Tetanus booster 03/15/2028 03/15/2018, 07/29/1998 Tdap Completed 03/15/2018 Pneumococcal series for age 6-64 Aged Out No longer eligible based on patient's age to complete this topic Procedures Procedure Name Priority Date/Time Associated Diagnosis Comments ROLL EDGE STITCHER HAND THIN PREP PAP SCREEN IMAGED Routine 03/09/2019 4:38 PM VINYL FLOORING INSTALLER Routine general medical examination at health care facility from Last 3 Months or Most Recently Relevant to Health Maintenance Results * ROLL EDGE STITCHER HAND THIN PREP PAP SCREEN IMAGED (03/09/2019 4:38 PM VINYL FLOORING INSTALLER) Case Report Gynecologic Cytology Report ? Case: [id number] ? Authorizing Provider: ??Breann Ashley NP ?Collected: ? 03/09/2019 1638 ? Ordering Location: ? [facility] ?Received: ?03/09/2019 1638 ? Clinic ? First Screen: ?Camila Fernando ? Specimen: ?ROLL EDGE STITCHER HAND ThinPrep Vial Screening, Cervical ? 03/17/2019 11:00 AM [facility] INTERPRETATION/ RESULT NEGATIVE FOR INTRAEPITHELIAL LESION OR MALIGNANCY (NIL) (none) 03/17/2019 11:00 AM [facility] IMEN ADEQUACY Satisfactory for evaluation Endocervical component present 03/17/2019 11:00 AM [facility] HPV REQUEST HPV if ASCUS 03/17/2019 11:00 AM [facility] Date of LMP 02/23/2019 03/17/2019 11:00 AM [facility] Last Pap Date Unknown 03/17/2019 11:00 AM [facility] Last Pap Result First Pap/Unknown 11:00 AM [employer] Abnormal Pap or Karval Bx in last 5 years No 03/17/2019 11:00 AM [facility] Menstrual Status Regular Periods 03/17/2019 11:00 AM [facility] Karval Bx Done Today No 03/17/2019 11:00 AM [facility] Additional Information None given 03/17/2019 11:00 AM [facility] Comment: Cytology is screened at [facility] Laboratory - [address], [place] [address] and [facility] [place] [facility] - [address], [place] [address] and [facility] - [address], [place] [address] Interpreted at [facility], Central Laboratory - [address], [place] [address] Automated Review Successful 03/17/2019 11:00 AM VINYL FLOORING INSTALLER [facility] Comment:Specimen processed s uccessfully by automated four roll calender operator device, ThinPrep Imaging System, [employer] Note The pap test is a screening technique, not a diagnostic procedure. It is used primarily to screen for squamous cancers and precursor lesions. Published studies have shown that it is subject to both false negative and false positive results. The pap test should not be used as the sole means to diagnose or exclude pre-malignant and malignant lesions. 03/17/2019 11:00 AM VINYL FLOORING INSTALLER [facility] Other (Cervical) Non-Blood / Unknown 03/09/2019 4:38 PM VINYL FLOORING INSTALLER 03/09/2019 4:38 PM [employer] F[employer]ORING INSTALLER Breann Ashley NP PATHOLOGY/CYTOLOGY [facility] [address] [place] [address], from Last 3 Months or Most Recently Relevant to Health Maintenance Care Teams Lay Out Worker Relationship Specialty Start Date End Date Clinic, [facility] [address] [facility] [address] PCP - General 10/17/20
--- OUTSIDE RECORDS SUMMARY | 2023-12-07 14:02 | XMS_ITS | Clinical Summary ---
Author Organization [facility] Address [address] [place] [id number] Care Team Providers Care Marketing Analytics Analyst Name Role Phone Shannen Rubio APRN, CNM Primary Care Provider Arlyn Brown MD Unavailable [phone] Social History Tobacco Use Types Packs/Day [...] 1985 ANNUAL REVIEW OF HM ORDERS 1985 GLUCOSE 1985 YEARLY PREVENTIVE VISIT 1985 PAP 2006 PHQ-2 (once per calendar year) 2023 COVID-19 Vaccine ( season) 2023 02/05/2023, 07/11/2021, 04/18/2020, Additional history exists INFLUENZA VACCINE (#1) 2023 , 12/23/2021, 04/23/2021, Additional history exists DTAP/TDAP/TD IMMUNIZATION (9 - Td or Tdap) 02/22/2033 02/22/2023, 10/02/2021, 03/15/2018, Additional history exists HEPATITIS B IMMUNIZATION Completed 005, 10/04/2002, 01/24/2001 MENINGITIS IMMUNIZATION Aged Out 09/23/2004, 09/23 No longer eligible based on patient's age to complete this topic HPV IMMUNIZATION Completed 11/12/2009, 09/2009, 08/16/2009, Additional history exists HEPATITIS C SCREENING Completed 08/24/2022 HIV SCREENING Completed 08/24/2022 Pneumococcal Vaccine: Pediatrics (0 to 5 Years) [...] AM CDT) HIV 1&2 EXT Non-Reacti ve [facility] Comment:see scan Blood 08/24/2022 10:3 0 AM CDT [facility] - 08/24/2022 10:30 AM CDT [facility] Lab Result Provider Outside LAB - HIM EXTERNAL R ESULT Performing Organization Address City/[facility] Co de Phone Number [facility] [address] [phone] * Hepatitis C (HIM External Result) (08/24/2022 10:30 AM CDT) Hep C HIM See Scanned Document [facility] 08/24/2022 10:3 0 AM CDT [facility] - 08/24/2022 10:30 AM CDT [facility] Lab Result Provider Outside LAB - HIM EXTERNAL R ESULT [facility] [address] [phone] from Last 3 Months or Most Recently Relevant to Health Maintenance Care Teams Marketing Analytics Analyst Relationship Specialty Start Date End Date Shannen Rubio APRN CNM [facility] [address] [place] [address] PCP - General pump tender 11/27/22 Arlyn Brown MD [id number] [id number] Assigned OBGYN Provider 01/30/23
[2023-12-10 01:43] LABS: HPV Source Cervical; HPV, High Risk by TMA Not Detected
[2023-12-20 16:56] LABS: PAP Reflex Billing Y; Pap Test Reviewed by Path Done
== END 2023-12-07 13:59 | disposition home or self-care (01) ==
PROVIDERS: Advanced Practice Midwife; Visit Provider Advanced Practice Midwife
DX: Z12.4 Encounter for screening for malignant neoplasm of cervix (principal)
CPT/HCPCS: 87624; 87625; 88141; 88142